=== PATIENT | female | born 1935 | race Caucasian/White ===

== ENCOUNTER → 2017-06-30 | Outpatient (CLI) | payer OTHER ==
[~2017-06-30] MED LIST: ADULT LOW DOSE81 MG PO; AMOXICILLIN 50500 MG PO; ASPIR 8181 MG PO; ASPIRIN325 PO; AUGMENTIN 875-1 EACH PO; BACTRIM DS TAB1 EACH PO; CRESTOR10 MG PO; DIFLUCAN200 MG PO; FLAGYL500 MG PO; FLONASE 0.05%50 MCG NASAL; HYDROCODON-ACE1 EAC7 PO; LEVAQUIN 500 M500 M2 PO; LEVOTHROID PO; LIPITOR10 MG PO; POTASSIUM20 PO; PROTONIX40 M1 PO; TRAMADOL 50 MG50 MG PO; TRAZODONE HCL50 MG PO; ZETIA10 MG PO; ZYRTEC10 M4 PO
== END ==
LOC: ULTRA 12:29
DX: R22.32 Localized swelling, mass and lump, left upper limb (principal)

== ENCOUNTER → 2017-07-01 | Outpatient (CLI) | payer OTHER | LOC: CAT 13:23 | DX: R22.2 Localized swelling, mass and lump, trunk (principal) ==

== ENCOUNTER → 2017-07-06 | Outpatient (CLI) | payer OTHER ==
--- NOTE | ~2017-07-06 | S ---
[facility] [place] [address] SURGICAL PATH RPT PROCEDURE Name: NADINE MOODY Room #: REG OPAL David.#: [id number] Admission: 07/06/17 Date of : 35 Discharge: Report #: [id number] Path Case #: [id number] PATHOLOGY REPORT COLLECTION DATE: 07/06/2017 RECEIVED DATE: 07/06/2017 SUBMITTING PHYS: Dr. Deshawn Whitlock OTHER PHYS: SPECIMEN(S) RECEIVED: A.Lt axillary lymph node * * * * * * * * * * * * FINAL DIAGNOSIS: Lymph node, left axillary, needle core biopsy: - Lymph node with few reactive follicles and fibrosis. Please see comment. COMMENT: Examination of the left axillary lymph node shows few reactive follicles and fibrosis. Definite Ramesh-Kareen cells, metastatic carcinoma or granulomas are not identified. Immunophenotypic studies by flow cytometry do not show evidence of non-Hodgkin lymphoma (please see separate flow cytometry report from [employer], [id number]). To confirm flow cytometric findings and characterize the lymphoid cells in a tissue architectural context, immunohistochemical stains are performed with appropriate controls: (Block A1) CD20 - Highlights B lymphoid cells CD3 - Highlights admixed T lymphoid cells CD10 - Highlights B lymphoid cells within germinal centers BCL6 - Highlights B lymphoid cells within germinal centers BCL2 - Highlights B and T lymphoid cells with lack of staining within germinal centers. CD138 - Highlights occasional plasma cells Sprague and lambda YOLA - Polytypic Based on the morphology, immunohistochemical staining pattern and flow cytometry, these findings are consistent with benign reactive lymph node. However, it should be noted that partially involved lymph node by malignancy or Hodgkin lymphoma in a background of reactive hyperplasia cannot be totally excluded due to sampling artifact. Excision of the lymph node is recommended if clinically suspicious. Co-review: Dr. Mariel Goodson. (JMQ:db; 07/08/2017) PATHOLOGIST: Irlanda Correia M.D. [address] [address] SURGICAL PATH RPT PROCEDURE Name: NADINE MOODY [facility] [id number] Admission: 07/06/17 Date of : 35 Discharge: Report #: [id number] Path Case #: [id number] REPORT ELECTRONICALLY SIGNED BY: Irlanda Correia M.D. DATE/TIME: 07/09/2017 13:09 * * * * * * * * * * * * GROSS PATHOLOGY: Received in formalin labeled "Nadine Moody, left axillary," and additionally labeled on the requisition as "lymph node," are 4 distinct needle cores of toledo soft tissue ranging from 0.2 to 1.6 cm in length, which are submitted entirely in cassette A1 through A3. (TSD; 07/06/2017) CLINICAL HISTORY: Left axillary lymph node INITIAL CPT CODE(S): A; 90604, 33634, 84285, 42112, 36436, 26988, 42996, 77818, 62812 Professional services performed by [facility] at [facility], [address] [place] [address]. Technical services performed by [email or web address] at [address] [place] [address], [address], [place] [address]. [facility] [address] [place] [address] PHONE: [phone] DIRECTOR: Richard Diego M.D. * * * END OF REPORT * * *
== END ==
LOC: ULTRA 10:37
DX: I89.8 Other specified noninfective disorders of lymphatic vessels and lymph nodes (principal); D64.9 Anemia, unspecified; Z88.8 Allergy status to other drugs, medicaments and biological substances; Z86.73 Personal history of transient ischemic attack (TIA), and cerebral infarction without residual deficits; Z87.440 Personal history of urinary (tract) infections

== ENCOUNTER 2017-08-17 14:33 | Inpatient (IN) | payer OTHER ==
[~2017-08-17] VITALS: Ht 160 cm; Wt 72.6 kg
--- NOTE | ~2017-08-17 | EKG ---
[place] [address] [facility] [address] [place] [address] ELECTROCARDIOGRAM REPORT Name: NADINE ARROYO Room #: 353-P ADM IN M.R.#: [id number] Admission: 08/17/17 Attend Phys: Deshawn Whitlock MD Discharge: Date of : 35 Report #: [id number] THIS REPORT FOR: //name// [facility] Test Date: 2017-08-18 Test Time: 01:45:34 Pat Name: NADINE ARROYO Department: Room: 353 Gender: F Instrument Setter: israel : 1935 Requested By: Deshawn Whitlock Order Number: [id number] MD: Arjun Novak Measurements Intervals [place] Rate: 103 P: 45 IA: 151 QRS: 14 QRSD: 76 T: 210 QT: 299 QTc: 392 Interpretive Statements Sinus tachycardia Repol abnrm suggests ischemia, diffuse leads Compared to ECG 08/17/2017 15:09:52 ST and T wave abnormality is more pronounced Electronically Signed On 08-18-2017 8:17:16 CDT by Arjun Novak [email or web address] <ELECTRONICALLY SIGNED> By: Arjun Novak MD, [facility] 08/18/17 0817 0145 0145 Arjun Novak MD, [facility] /EPI
--- NOTE | ~2017-08-17 | EKG ---
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: MARY : 1935 Requested By: Rosaura Honeycutt Order Number: [id number] MD: Arjun Novak Measurements Intervals [place] Rate: 87 P: 44 LA: 153 QRS: 21 QRSD: 81 T: 71 QT: 368 QTc: 443 Interpretive Statements Sinus rhythm Minimal ST depression, anterolateral leads Compared to ECG 01/30/2016 10:18:16 ST (T wave) deviation now present Electronically Signed On 08-17-2017 17:21:12 CDT by Arjun Novak [email or web address] <ELECTRONICALLY SIGNED> By: Arjun Novak MD, [facility] 08/17/17 1721 1509 1509 Arjun Novak MD, [facility] /EPI
--- NOTE | ~2017-08-17 | S ---
[facility] [address] [place] [address] SURGICAL PATH RPT PROCEDURE Name: NADINE ARROYO Room #: 353-P ADM IN M.R.#: [id number] Admission: 08/17/17 Date of : 35 Discharge: Report #: [id number] Path Case #: [id number] PATHOLOGY REPORT DRAFT COLLECTION DATE: 08/20/2017 RECEIVED DATE: 08/20/2017 SPECIMEN(S) RECEIVED: A.Bone marrow, biopsy B.Bone marrow, clot and/or particle prep C.Bone marrow, aspirate smears D.Peripheral smear
[2017-08-17 14:40] VITALS: BP 116/62
[2017-08-17 16:08] LABS: MCH 28.6 pg (26.0-34.0); MCHC 33.5 g/dL (28.0-37.0); MCV 85.6 fL (80.0-100.0); RBC 1.92 mil/uL (4.20-5.00); RDW 15.6 % (10.5-14.5)
[2017-08-17 16:14] LABS: HEMATOCRIT 16.5 % (37.0-47.0); HEMOGLOBIN 5.5 gm/dL (12.0-15.0); WBC 1.5 thou/uL (4.0-11.0)
[2017-08-17 16:16] LABS: ANION GAP 8 mmol/L (7-16); BUN 29 mg/dL (7-18); CALCIUM 8.6 mg/dL (8.5-10.1); CHLORIDE 110 mmol/L (98-107); CO2 27 mmol/L (21-32); CREATININE 1.1 mg/dL (0.6-1.0); GLUCOSE 102 mg/dL (74-106); POTASSIUM 3.8 mmol/L (3.5-5.1); SODIUM 145 mmol/L (136-145)
[2017-08-17 16:25] LABS: TROPONIN-I < 0.04 ng/mL (<0.06)
[2017-08-17 16:34] LABS: ABSOLUTE NEUTROPHILS 0.4 thou/uL (1.4-8.2); ANISOCYTOSIS 1+; LARGE PLATELETS FEW; PLATELET COUNT 10 thou/uL (150-400); PLATELET ESTIMATE MARKEDLY DECREASED
[2017-08-17 17:18] VITALS: BP 137/72
[2017-08-17 17:38] VITALS: BP 122/59
[2017-08-17 19:30] VITALS: BP 114/55
[2017-08-17 23:28] VITALS: BP 112/58; BP 118/81
[2017-08-17 23:50] VITALS: BP 112/58
[2017-08-18] VITALS (8 sets, daily range): BP systolic 108–132; BP diastolic 51–73
[2017-08-18 10:32] LABS: HEMATOCRIT 20.8 % (37.0-47.0); HEMOGLOBIN 7.1 gm/dL (12.0-15.0)
[2017-08-18 16:08] LABS: HEMOGLOBIN 6.9 gm/dL (12.0-15.0)
[2017-08-19 00:15] VITALS: BP 111/60; BP 115/73; BP 136/77
[2017-08-19 03:10] VITALS: BP 136/77
[2017-08-19 05:45] LABS: HEMATOCRIT 21.7 % (37.0-47.0); HEMOGLOBIN 7.3 gm/dL (12.0-15.0); RBC 2.65 mil/uL (4.20-5.00)
[2017-08-19 05:50] LABS: MCH 27.5 pg (26.0-34.0); MCHC 33.5 g/dL (28.0-37.0); MCV 81.9 fL (80.0-100.0)
[2017-08-19 05:55] LABS: WBC 1.7 thou/uL (4.0-11.0)
[2017-08-19 07:55] VITALS: BP 140/58
[2017-08-19 11:26] VITALS: BP 130/66
[2017-08-19 16:14] VITALS: BP 118/81
[2017-08-19 19:40] VITALS: BP 118/61
[2017-08-20] VITALS (9 sets, daily range): BP systolic 104–123; BP diastolic 48–64
[2017-08-20 07:05] LABS: PROTIME 10.5 Seconds (9.3-11.4)
[2017-08-21] VITALS (8 sets, daily range): BP systolic 96–134; BP diastolic 44–82
[2017-08-21 07:22] LABS: RDW 15.9 % (10.5-14.5)
[2017-08-21 07:25] LABS: MCH 27.5 pg (26.0-34.0); MCV 80.8 fL (80.0-100.0); RBC 2.04 mil/uL (4.20-5.00)
[2017-08-21 07:30] LABS: HEMOGLOBIN 5.6 gm/dL (12.0-15.0); WBC 1.4 thou/uL (4.0-11.0)
[2017-08-21 07:31] LABS: HEMATOCRIT 16.5 % (37.0-47.0)
[2017-08-21 22:23] LABS: HEMATOCRIT 23.9 % (37.0-47.0)
[2017-08-21 22:25] LABS: HEMOGLOBIN 8.1 gm/dL (12.0-15.0)
[2017-08-22 04:31] VITALS: BP 104/53
[2017-08-22 08:00] VITALS: BP 101/71
[2017-08-22 12:08] LABS: HEMATOCRIT 22.4 % (37.0-47.0); HEMOGLOBIN 7.7 gm/dL (12.0-15.0); MCH 28.7 pg (26.0-34.0); MCHC 34.5 g/dL (28.0-37.0); MCV 83.2 fL (80.0-100.0); RBC 2.69 mil/uL (4.20-5.00)
[2017-08-22 12:11] VITALS: BP 105/32; BP 86/57
[2017-08-22 15:53] LABS: HEMATOCRIT 22.7 % (37.0-47.0)
[2017-08-22 15:54] LABS: HEMOGLOBIN 7.5 gm/dL (12.0-15.0); MCH 28.5 pg (26.0-34.0); MCHC 33.3 g/dL (28.0-37.0); MCV 85.7 fL (80.0-100.0); RBC 2.65 mil/uL (4.20-5.00)
[2017-08-22 15:59] LABS: WBC 1.4 thou/uL (4.0-11.0)
[2017-08-22 16:43] VITALS: BP 123/52
[2017-08-22 20:00] VITALS: BP 95/51
[2017-08-23 04:00] VITALS: BP 110/51
[2017-08-23 08:08] VITALS: BP 87/65
[2017-08-23 10:51] LABS: MCV 83.3 fL (80.0-100.0); WBC 2.1 thou/uL (4.0-11.0)
[2017-08-23 10:53] LABS: MCH 28.8 pg (26.0-34.0); MCHC 34.5 g/dL (28.0-37.0); RBC 2.21 mil/uL (4.20-5.00); RDW 16.3 % (10.5-14.5)
[2017-08-23 11:00] LABS: HEMATOCRIT 18.4 % (37.0-47.0); HEMOGLOBIN 6.4 gm/dL (12.0-15.0); PLATELET COUNT 10 thou/uL (150-400)
[2017-08-23 11:26] LABS: ABSOLUTE NEUTROPHILS 1.7 thou/uL (1.4-8.2)
[2017-08-23 11:27] LABS: ANISOCYTOSIS 1+; HYPOCHROMASIA 2+; OVALOCYTES OCCASIONAL; TARGET CELLS OCCASIONAL
[2017-08-23 11:40] VITALS: BP 118/60
[2017-08-23 14:57] VITALS: BP 107/54; BP 116/58
[2017-08-23 16:26] VITALS: BP 112/49
[2017-08-23 20:40] VITALS: BP 113/55
[2017-08-24 03:10] VITALS: BP 132/68
[2017-08-24 05:15] LABS: ABSOLUTE NEUTROPHILS 6.4 thou/uL (1.4-8.2); HEMOGLOBIN 7.5 gm/dL (12.0-15.0)
[2017-08-24 05:18] LABS: BASOPHILS 0.2 % (0.0-2.0); EOSINOPHILS 0.5 % (0.0-3.0); HEMATOCRIT 22.3 % (37.0-47.0); LYMPHOCYTES 6.1 % (24.0-44.0); MCH 27.9 pg (26.0-34.0); MCHC 33.8 g/dL (28.0-37.0); MCV 82.5 fL (80.0-100.0); MONOCYTES 8.4 % (1.0-8.0); POLYS 84.8 % (36.0-66.0); RDW 16.5 % (10.5-14.5)
[2017-08-24 05:32] LABS: WBC 7.5 thou/uL (4.0-11.0)
[2017-08-24 08:04] VITALS: BP 128/66
[2017-08-24 08:26] LABS: ANISOCYTOSIS 2+; MICROCYTES 2+; PLATELET COUNT 25 thou/uL (150-400); PLATELET ESTIMATE MARKEDLY DECREASED
[2017-08-24 12:20] VITALS: BP 136/88
[2017-08-24 17:17] VITALS: BP 135/75
[2017-08-24 19:30] VITALS: BP 117/67
[2017-08-25 04:05] VITALS: BP 136/56
[2017-08-25 06:18] LABS: ABSOLUTE NEUTROPHILS 7.3 thou/uL (1.4-8.2); BASOPHILS 0.1 % (0.0-2.0); HEMATOCRIT 20.9 % (37.0-47.0); HEMOGLOBIN 7.2 gm/dL (12.0-15.0); LYMPHOCYTES 7.4 % (24.0-44.0); MCHC 34.2 g/dL (28.0-37.0); MCV 81.7 fL (80.0-100.0); MONOCYTES 7.1 % (1.0-8.0); PLATELET COUNT 20 thou/uL (150-400); POLYS 85.4 % (36.0-66.0); RBC 2.56 mil/uL (4.20-5.00); RDW 16.6 % (10.5-14.5); WBC 8.6 thou/uL (4.0-11.0)
[2017-08-25 07:23] VITALS: BP 141/69
[2017-08-25 12:55] VITALS: BP 125/59
[2017-08-25 20:05] VITALS: BP 123/67
[2017-08-25 22:28] VITALS: BP 123/76; BP 150/85
[2017-08-26 04:10] VITALS: BP 148/64
[2017-08-26 05:53] LABS: ABSOLUTE NEUTROPHILS 7.4 thou/uL (1.4-8.2); BASOPHILS 0.2 % (0.0-2.0); LYMPHOCYTES 10.3 % (24.0-44.0); MCH 27.4 pg (26.0-34.0); MCHC 33.2 g/dL (28.0-37.0); MCV 82.3 fL (80.0-100.0); MONOCYTES 5.9 % (1.0-8.0); POLYS 83.6 % (36.0-66.0); RBC 2.92 mil/uL (4.20-5.00); RDW 16.2 % (10.5-14.5); WBC 8.8 thou/uL (4.0-11.0)
[2017-08-26 05:58] LABS: PLATELET COUNT 87 thou/uL (150-400)
[2017-08-26 08:09] VITALS: BP 146/62
[2017-08-26 11:04] VITALS: BP 132/60
[2017-08-26 14:26] VITALS: BP 131/66
[2017-08-26 20:00] VITALS: BP 110/61
[2017-08-27 04:10] VITALS: BP 128/57
[2017-08-27 05:19] LABS: HEMATOCRIT 21.8 % (37.0-47.0); HEMOGLOBIN 7.2 gm/dL (12.0-15.0); MCH 27.3 pg (26.0-34.0); MCHC 33.2 g/dL (28.0-37.0); MCV 82.2 fL (80.0-100.0); RBC 2.65 mil/uL (4.20-5.00); RDW 16.7 % (10.5-14.5); WBC 6.2 thou/uL (4.0-11.0)
[2017-08-27 05:50] LABS: ABSOLUTE NEUTROPHILS 4.3 thou/uL (1.4-8.2); ANISOCYTOSIS 1+; PLATELET COUNT 58 thou/uL (150-400)
[2017-08-27 07:45] VITALS: BP 112/63
[2017-08-27 08:48] VITALS: BP 112/63
== END 2017-08-27 12:20 | disposition home or self-care (01) | DRG 377 ==
LOC: ER 14:33 → 3W 16:20 → EROBS 16:20 → 3W 18:07 → ENTRNSPT 08-27 12:02 → EDTRNSPTSTS 08-27 12:06 → 3W 08-27 12:20
PROVIDERS: Emergency Medicine; Family Medicine; Internal Medicine Gastroenterology; Internal Medicine Hematology & Oncology; Radiology Diagnostic Radiology; Specialist
PROC: 07DR3ZX Extraction of Iliac Bone Marrow, Percutaneous Approach, Diagnostic (ICD-10-PCS; principal; 2017-08-20)
PROC: 30233N1 Transfusion of Nonautologous Red Blood Cells into Peripheral Vein, Percutaneous Approach (ICD-10-PCS; principal; 2017-08-20)
PROC: 30233R1 Transfusion of Nonautologous Platelets into Peripheral Vein, Percutaneous Approach (ICD-10-PCS; principal; 2017-08-20)
PROC: 0W3P8ZZ Control Bleeding in Gastrointestinal Tract, Via Natural or Artificial Opening Endoscopic (ICD-10-PCS; 2017-08-26)
PROC: 0D5K8ZZ Destruction of Ascending Colon, Via Natural or Artificial Opening Endoscopic (ICD-10-PCS; 2017-08-26)
DX: K92.2 Gastrointestinal hemorrhage, unspecified (principal); E43 Unspecified severe protein-calorie malnutrition; D61.818 Other pancytopenia; N39.0 Urinary tract infection, site not specified; I69.954 Hemiplegia and hemiparesis following unspecified cerebrovascular disease affecting left non-dominant side; Q27.33 Arteriovenous malformation of digestive system vessel; E89.0 Postprocedural hypothyroidism; D46.9 Myelodysplastic syndrome, unspecified; D69.6 Thrombocytopenia, unspecified; I20.9 Angina pectoris, unspecified; Z79.899 Other long term (current) drug therapy; Z88.8 Allergy status to other drugs, medicaments and biological substances; Z88.1 Allergy status to other antibiotic agents; Z68.28 Body mass index [BMI] 28.0-28.9, adult
CPT/HCPCS: 10879; 62110; 62900; 70005

== ENCOUNTER → 2017-09-08 | Outpatient (CLI) | payer OTHER ==
[2017-09-08 10:00] LABS: MCV 83.5 fL (80.0-100.0); RDW 17.3 % (10.5-14.5)
[2017-09-08 10:01] LABS: HEMATOCRIT 20.1 % (37.0-47.0); HEMOGLOBIN 6.6 gm/dL (12.0-15.0); MCH 27.5 pg (26.0-34.0); RBC 2.41 mil/uL (4.20-5.00)
[2017-09-08 10:29] LABS: METAMYELOCYTES 1 %
[2017-09-08 10:30] LABS: ANISOCYTOSIS 1+; HYPOCHROMASIA 1+; MICROCYTES 2+; OVALOCYTES FEW; POIKILOCYTOSIS 2+; POLYCHROMASIA 1+
[2017-09-08 10:38] VITALS: BP 137/61
[2017-09-08 10:42] LABS: PLATELET COUNT 46 thou/uL (150-400)
[2017-09-08 11:43] VITALS: BP 135/63; BP 136/56
[2017-09-08 14:06] VITALS: BP 137/61
== END ==
LOC: OPONC 07:29
PROVIDERS: Family Medicine
DX: D46.9 Myelodysplastic syndrome, unspecified (principal)
CPT/HCPCS: 91030

== ENCOUNTER 2017-10-19 11:02 | Inpatient (IN) | payer OTHER ==
[~2017-10-19] VITALS: Ht 157.5 cm; Wt 77.8 kg
--- NOTE | ~2017-10-19 | EKG ---
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 : 1935 Requested By: Dharmesh Rodrigues Order Number: [id number] MD: Arjun Novak Measurements Intervals [place] Rate: 82 P: 58 MD: 164 QRS: 28 QRSD: 74 T: 31 QT: 375 QTc: 438 Interpretive Statements Sinus rhythm No significant abnormality Compared to ECG 08/18/2017 01:45:34 Sinus tachycardia no longer present ST segment abnormality is no longer present Electronically Signed On 10-20-2017 14:09:41 CDT by Arjun Novak [email or web address] <ELECTRONICALLY SIGNED> By: Arjun Novak MD, [facility] 10/20/17 1409 1220 1220 Arjun Novak MD, [facility] /EPI
--- NOTE | ~2017-10-19 | PATH ---
[facility] [place] [address] [place] [address] PATHOLOGY RPT PROCEDURE Name: CHAVO ARROYOR Room #: 217-P DIS IN M.R.#: [id number] Admission: 10/19/17 Date of : 35 Discharge: 10/22/17 Report #: [id number] Path Case #: [id number] [facility] Accession Number: [id number] . 01 Material submitted: . POLYP-PROXIMAL ASCENDING COLON BX . 01 Clinical history: . Pre-op DX: GI bleed, recurrent Post-op DX: Multiple AVMs, colon polyp, diverticulosis . 02 Diagnosis: Polyp, proximal ascending colon, endoscopic biopsy: - Compatible with a hyperplastic polyp. - Focal lymphoid aggregate. - Negative for dysplasia. (IUV:db; 10/23/2017) LBQ/10/23/2017 . 02 Electronically signed: . Mary Toure MD, Pathologist NPI- [id number] . 01 Gross description: . Received in formalin labeled "Debruyn, Nadine, ascending colon polyp BX," and additionally labeled on the requisition as, "proximal ascending colon," is a segment of toledo soft tissue measuring 0.4 cm in maximum dimension. The specimen is submitted entirely in cassette A1. (DAC; 10/22/2017) XDC/XDC . 02 Pathologist provided ICD-10: K63.5 . 02 CPT . 104705 Performed at: [address], [place] [id number] MD James Rae MD Phone: [phone] Performed at: [address] [id number] MD Mary Toure MD Phone: [phone]
[2017-10-19 11:11] VITALS: BP 120/55
[2017-10-19 11:48] LABS: MCV 82.5 fL (80.0-100.0)
[2017-10-19 11:50] LABS: MCH 26.7 pg (26.0-34.0); MCHC 32.4 g/dL (28.0-37.0); RBC 2.29 mil/uL (4.20-5.00); RDW 20.9 % (10.5-14.5)
[2017-10-19 11:54] LABS: CALCIUM 8.3 mg/dL (8.5-10.1); POTASSIUM 3.8 mmol/L (3.5-5.1)
[2017-10-19 11:56] LABS: WBC 1.6 thou/uL (4.0-11.0)
[2017-10-19 11:57] LABS: HEMATOCRIT 18.9 % (37.0-47.0); HEMOGLOBIN 6.1 gm/dL (12.0-15.0)
[2017-10-19 12:01] LABS: ALBUMIN 3.5 g/dL (3.4-5.0); TOTAL BILIRUBIN 0.3 mg/dL (<0.1-1.0); TOTAL PROTEIN 7.1 g/dL (6.4-8.2)
[2017-10-19 12:24] LABS: ABSOLUTE NEUTROPHILS 0.2 thou/uL (1.4-8.2)
[2017-10-19 12:25] LABS: ANISOCYTOSIS 1+; LARGE PLATELETS FEW; OVALOCYTES 1+; PLATELET COUNT 59 thou/uL (150-400); PLATELET ESTIMATE DECREASED; POLYCHROMASIA 1+
[2017-10-19 12:26] LABS: HYPOCHROMASIA 2+
[2017-10-19 14:00] VITALS: BP 113/38; BP 115/62; BP 117/48; BP 118/50; BP 119/58
[2017-10-19 14:17] LABS: URINE BILIRUBIN NEGATIVE (Negative); URINE BLOOD NEGATIVE (Negative); URINE CLARITY CLEAR; URINE COLOR YELLOW; URINE GLUCOSE-RANDOM* NEGATIVE (Negative); URINE KETONES NEGATIVE (Negative); URINE LEUKOCYTES-REFLEX NEGATIVE (Negative); URINE NITRITE-REFLEX NEGATIVE (Negative); URINE PROTEIN (DIPSTICK) NEGATIVE (Negative); URINE SPECIFIC GRAVITY 1.015 (1.005-1.035); URINE UROBILINOGEN 0.2 E.U./dl (0.2-1.0)
[2017-10-19 17:41] VITALS: BP 120/55
[2017-10-19 17:45] VITALS: BP 138/67
[2017-10-19 18:00] LABS: HEMOGLOBIN 7.1 gm/dL (12.0-15.0)
[2017-10-19 18:02] LABS: HEMATOCRIT 21.4 % (37.0-47.0)
[2017-10-19 18:50] VITALS: BP 138/67
[2017-10-19 19:00] VITALS: BP 140/71
[2017-10-20 00:50] VITALS: BP 110/57
[2017-10-20 05:14] VITALS: BP 107/58
[2017-10-20 07:36] VITALS: BP 127/64
[2017-10-20 11:35] LABS: HEMATOCRIT 23.5 % (37.0-47.0)
[2017-10-20 11:36] LABS: HEMOGLOBIN 7.8 gm/dL (12.0-15.0)
[2017-10-20 12:27] VITALS: BP 125/74
[2017-10-20 15:25] VITALS: BP 123/59
[2017-10-20 17:07] LABS: HEMOGLOBIN 7.9 gm/dL (12.0-15.0)
[2017-10-20 17:08] LABS: HEMATOCRIT 23.7 % (37.0-47.0)
[2017-10-20 20:15] VITALS: BP 126/99
[2017-10-21 00:39] VITALS: BP 150/75
[2017-10-21 04:17] VITALS: BP 123/78
[2017-10-21 07:34] VITALS: BP 126/58
[2017-10-21 15:05] VITALS: BP 124/56
[2017-10-21 20:25] VITALS: BP 118/65
[2017-10-22 04:00] LABS: HEMOGLOBIN 7.6 gm/dL (12.0-15.0)
[2017-10-22 04:02] LABS: HEMATOCRIT 22.7 % (37.0-47.0)
[2017-10-22 05:02] VITALS: BP 121/57
[2017-10-22 07:47] VITALS: BP 116/54
[2017-10-22 10:58] VITALS: BP 116/54
[2017-10-22 11:33] VITALS: BP 113/63
[2017-10-22 12:01] VITALS: BP 116/54
== END 2017-10-22 12:15 | disposition home or self-care (01) | DRG 377 ==
LOC: ER 11:02 → 2N 12:30 → EROBS 12:30 → 2N 19:14
PROVIDERS: Anesthesiology; Internal Medicine Gastroenterology; Nurse Practitioner; Physician Assistant
PROC: 0DJ08ZZ Inspection of Upper Intestinal Tract, Via Natural or Artificial Opening Endoscopic (ICD-10-PCS; principal; 2017-10-20)
PROC: 30233N1 Transfusion of Nonautologous Red Blood Cells into Peripheral Vein, Percutaneous Approach (ICD-10-PCS; principal; 2017-10-20)
PROC: 0DBK8ZX Excision of Ascending Colon, Via Natural or Artificial Opening Endoscopic, Diagnostic (ICD-10-PCS; 2017-10-21)
PROC: 0D5H8ZZ Destruction of Cecum, Via Natural or Artificial Opening Endoscopic (ICD-10-PCS; 2017-10-21)
DX: K55.21 Angiodysplasia of colon with hemorrhage (principal); E43 Unspecified severe protein-calorie malnutrition; D62 Acute posthemorrhagic anemia; K57.31 Diverticulosis of large intestine without perforation or abscess with bleeding; E89.0 Postprocedural hypothyroidism; D46.9 Myelodysplastic syndrome, unspecified; K44.9 Diaphragmatic hernia without obstruction or gangrene; K22.2 Esophageal obstruction; K63.5 Polyp of colon; Z88.1 Allergy status to other antibiotic agents; Z88.8 Allergy status to other drugs, medicaments and biological substances; Z79.899 Other long term (current) drug therapy; Z68.31 Body mass index [BMI] 31.0-31.9, adult
CPT/HCPCS: 10081; 62110; 62900; 70005

== ENCOUNTER 2018-04-10 09:21 | Emergency (ER) | payer OTHER ==
[~2018-04-10] VITALS: Ht 152.4 cm; Wt 74.8 kg
--- NOTE | ~2018-04-10 | EKG ---
[address] [address] ELECTROCARDIOGRAM REPORT Name: NADINE ARROYO [id number] Admission: 04/10/18 Attend Phys: Discharge: 04/10/18 Date of : 35 Report #: [id number] THIS REPORT FOR: //name// [facility] ED Test Date: 2018-04-10 Test Time: 10:29:56 Pat Name: NADINE ARROYO Department: Room: Gender: F Rn Flight: [facility] : 1935 Requested By: Fred Philip Order Number: [id number] MD: Brando Gipson Measurements Intervals [place] Rate: 70 P: 36 [place]: 132 QRS: 14 QRSD: 90 T: 26 QT: 366 QTc: 395 Interpretive Statements Sinus rhythm Atrial premature complex Compared to ECG 10/19/2017 12:20:09 Atrial premature complex(es) now present Electronically Signed On 04-11-2018 20:33:39 BAR GAUGER AND LUBRICATOR TENDER by Brando Gipson [email or web address] <ELECTRONICALLY SIGNED> By: Brando Gipson MD 04/11/182032 1029 1029 Brando Gipson MD /SHOBHA
[2018-04-10 10:32] LABS: HEMATOCRIT 28.2 % (37.0-47.0); HEMOGLOBIN 9.6 gm/dL (12.0-15.0); MCH 28.8 pg (26.0-34.0); MCHC 34.2 g/dL (28.0-37.0); MCV 84.1 fL (80.0-100.0); RBC 3.35 mil/uL (4.20-5.00); RDW 15.8 % (10.5-14.5); WBC 6.1 thou/uL (4.0-11.0)
[2018-04-10 10:47] LABS: ANION GAP 13 mmol/L (7-16); BUN 16 mg/dL (7-18); CALCIUM 8.7 mg/dL (8.5-10.1); CHLORIDE 100 mmol/L (98-107); CO2 22 mmol/L (21-32); GLUCOSE 117 mg/dL (74-106); POTASSIUM 3.1 mmol/L (3.5-5.1); SODIUM 135 mmol/L (136-145)
[2018-04-10 10:55] LABS: ALBUMIN 3.4 g/dL (3.4-5.0); MAGNESIUM 2.2 mg/dL (1.8-2.4); SGOT 32 U/L (15-37); SGPT 22 U/L (30-65); TOTAL BILIRUBIN 0.7 mg/dL (<0.1-1.0); TOTAL PROTEIN 7.4 g/dL (6.4-8.2); TROPONIN-I <0.06 ng/mL (<0.06)
[2018-04-10 11:07] LABS: URINE BILIRUBIN NEGATIVE (Negative); URINE BLOOD 1+ (Negative); URINE CLARITY CLEAR; URINE COLOR YELLOW; URINE GLUCOSE-RANDOM* NEGATIVE (Negative); URINE KETONES TRACE (Negative); URINE LEUKOCYTES-REFLEX NEGATIVE (Negative); URINE NITRITE-REFLEX NEGATIVE (Negative); URINE PROTEIN (DIPSTICK) 1+ (Negative)
[2018-04-10 11:24] LABS: CASTS None Seen /LPF (None Seen); MUCUS >6 Heavy strn/LPF (None Seen); SQUAMOUS 0-3 Few /LPF (0-3)
[2018-04-10 11:26] LABS: BACTERIA-REFLEX 1-9 Few /HPF (None Seen); CRYSTALS None Seen /LPF (None Seen); URINE RBC 0-2 Rare /HPF (0-2); URINE WBC-REFLEX 0-5 Rare /HPF (0-5)
[2018-04-10 11:55] LABS: ABSOLUTE NEUTROPHILS 3.9 thou/uL (1.4-8.2)
[2018-04-10 11:56] LABS: LARGE PLATELETS FEW; PLATELET COUNT 59 thou/uL (150-400)
[2018-04-10] MEDS ORDERED: FLOMAX0.4 MG PO (12:02)
[2018-04-10 13:22] VITALS: BP 123/75
== END 2018-04-10 13:23 | disposition home or self-care (01) ==
LOC: ER 09:21
PROVIDERS: Emergency Medicine
DX: D64.9 Anemia, unspecified (principal); E87.6 Hypokalemia; E03.9 Hypothyroidism, unspecified; D69.6 Thrombocytopenia, unspecified; R33.9 Retention of urine, unspecified; Z86.2 Personal history of diseases of the blood and blood-forming organs and certain disorders involving the immune mechanism; Z88.1 Allergy status to other antibiotic agents; Z88.8 Allergy status to other drugs, medicaments and biological substances

== ENCOUNTER 2018-05-05 15:15 | Inpatient (IN) | payer OTHER ==
[~2018-05-05] VITALS: Ht 160 cm; Wt 70.6 kg
[~2018-05-05 15:15] MED LIST changes: +FLOMAX0.4 MG PO
[2018-05-05 17:36] VITALS: BP 121/46
[2018-05-05 19:15] LABS: HEMATOCRIT 26.4 % (37.0-47.0); HEMOGLOBIN 8.9 gm/dL (12.0-15.0); MCH 27.4 pg (26.0-34.0); MCHC 33.7 g/dL (28.0-37.0); MCV 81.1 fL (80.0-100.0); RBC 3.26 mil/uL (4.20-5.00); RDW 17.6 % (10.5-14.5); WBC 5.6 thou/uL (4.0-11.0)
[2018-05-05 19:18] VITALS: BP 124/55
[2018-05-06 04:14] VITALS: BP 118/52
[2018-05-06 07:43] VITALS: BP 122/71
[2018-05-06 15:43] VITALS: BP 129/57
[2018-05-06 19:12] VITALS: BP 118/63
[2018-05-07 04:02] VITALS: BP 109/55
[2018-05-07 06:00] LABS: CALCIUM 8.1 mg/dL (8.5-10.1); CREATININE 0.8 mg/dL (0.6-1.0); MAGNESIUM 2.1 mg/dL (1.8-2.4)
[2018-05-07 06:02] LABS: POTASSIUM 2.7 mmol/L (3.5-5.1)
[2018-05-07 08:38] VITALS: BP 136/65
[2018-05-07 12:30] VITALS: BP 111/66
[2018-05-07 16:30] LABS: CALCIUM 8.3 mg/dL (8.5-10.1); POTASSIUM 3.6 mmol/L (3.5-5.1)
[2018-05-08 07:07] LABS: CALCIUM 8.2 mg/dL (8.5-10.1); CREATININE 0.9 mg/dL (0.6-1.0); POTASSIUM 3.5 mmol/L (3.5-5.1)
[2018-05-08 08:00] VITALS: BP 108/55
[2018-05-08 19:49] VITALS: BP 114/59
[2018-05-09 07:53] VITALS: BP 106/60
[2018-05-09 20:54] VITALS: BP 131/70
[2018-05-10 08:40] VITALS: BP 116/52
== END 2018-05-10 17:28 | DRG 389 ==
LOC: 4W 15:15 → 4N 17:00 → 4W 17:01 → SICU 05-07 12:02
PROVIDERS: Hospitalist; Internal Medicine Gastroenterology; ADMIT Family Medicine
DX: K56.7 Ileus, unspecified (principal); I69.354 Hemiplegia and hemiparesis following cerebral infarction affecting left non-dominant side; K59.00 Constipation, unspecified; D46.9 Myelodysplastic syndrome, unspecified; E89.0 Postprocedural hypothyroidism; R53.81 Other malaise; D69.59 Other secondary thrombocytopenia; E87.6 Hypokalemia; Z88.1 Allergy status to other antibiotic agents; Z88.8 Allergy status to other drugs, medicaments and biological substances
CPT/HCPCS: 10047; 15000; 15002

== ENCOUNTER 2018-08-18 11:41 | Inpatient (IN) | payer OTHER, MEDICAID ==
[~2018-08-18] VITALS: Ht 154.9 cm; Wt 68.0 kg
[2018-08-18] VITALS (8 sets, daily range): BP systolic 98–149; BP diastolic 39–94
--- NOTE | ~2018-08-18 | P ---
[facility] [place] [address] [place] [address] PROCEDURE REPORT Name: NADINE ARROYO Room #: 350-P ADM IN M.R.#: [id number] Admission: 08/18/18 ������������������ Attend Phys: Deshawn Whitlock MD Discharge: ������������������ Date of : 35 Report #: [id number] THIS REPORT FOR: //name// CC: Deshawn Whitlock MD DATE OF SERVICE: 08/19/2018 PROCEDURE: EGD with biopsies and BICAP ablation of nonbleeding arteriovenous malformation. She is a patient of Dr. Deshawn Whitlock. INDICATION FOR PROCEDURE: This patient had presented with melena and elevated BUN and hematochezia of undetermined etiology. 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 She also has a severe iron deficiency anemia. Informed consent for this procedure was obtained prior to the administration of any medication. The risks of the procedure, which include bleeding, perforation, infection, complications of sedation and the possibility I could miss something have been explained to the patient and she has indicated her consent by signing. Anesthesia kindly provided deep sedation for this procedure and the colonoscopy that followed it. The Olympus upper videoscope was introduced through the upper esophageal sphincter and advanced under direct visualization to the third portion of the duodenum. Findings are noted on withdrawal of the scope. The duodenal mucosa appeared normal throughout its entirety. Biopsies were obtained x 2 to evaluate for possible celiac disease as an etiology of iron deficiency anemia. Pylorus: Normal mucosa. Antrum: Normal mucosa. Body: In the body of the stomach on the lesser curvature, there is a nonbleeding 1 cm arteriovenous malformation. It is ablated with the BICAP cautery system and found to be stable. The remaining mucosa of the body of the stomach appears normal. Cardia and fundus: Normal mucosa. Retroflex view reveals a small hiatal hernia. The scope was withdrawn into the esophagus. The Z-line is located at the top of the gastric folds and there is a Schatzki ring that is asymptomatic right at the Z-line. The esophageal mucosa appears normal throughout its entirety. The scope was withdrawn. The patient went to the recovery room in stable condition. She tolerated the procedure well. IMPRESSION: 1. Distal esophageal Schatzki ring, asymptomatic. 2. Small hiatal hernia. [facility] [address] [place] [address] PROCEDURE REPORT Name: NADINE ARROYO Room #: [facility] IN M.R.#: [id number] Admission: 08/18/18 ������������������ Attend Phys: Deshawn Whitlock MD Discharge: ������������������ Date of : 35 Report #: [id number] 3. Nonbleeding AVM of the mid stomach ablated with BICAP. 4. Normal appearing duodenum with biopsies taken for celiac sprue to rule this out as an etiology of iron deficiency anemia. RECOMMENDATIONS: To await the biopsy results and we will proceed with colonoscopy as the next test at this time. Thank you very much once again for allowing me to participate in her care, Dr. Whitlock. ��������������������������������������������� ���������������������������������������� By: ��������������������������������������������� 1421 0436 Dona De La Cruz, DO /nt
--- NOTE | ~2018-08-18 | P ---
[facility] [place] [address] [place] [address] PROCEDURE REPORT Name: NADINE ARROYO Room #: 350-P ADM IN M.R.#: [id number] Admission: 08/18/18 ������������������ Attend Phys: Deshawn Whitlock MD Discharge: ������������������ Date of : 35 Report #: [id number] THIS REPORT FOR: //name// CC: DESHAWN Whitlock DATE OF SERVICE: 08/19/2018 PATIENT OF: Dr. Deshawn Whitlock. PROCEDURE: Incomplete colonoscopy with snare polypectomy. INDICATION FOR PROCEDURE: This patient has had melena, hematochezia. She has a history of bleeding arteriovenous malformations of the cecum. She has severe iron deficiency anemia. Informed consent for this procedure was obtained prior to the administration of any medication. The risks of the procedure, which include bleeding, perforation, infection, complications of sedation and the possibility I could miss something have been explained to the patient and she has indicated her consent by signing. Propofol was slowly titrated before and during this procedure for patient comfort by the Anesthesia Service. DESCRIPTION OF PROCEDURE: With the patient in the left lateral decubitus position, digital rectal exam was performed and no abnormalities were palpated. Then, the Olympus colonoscope was introduced through the anal sphincter and advanced under direct visualization to 20 cm where I encountered this diverticular stricture, what appeared to be a benign diverticular stricture and despite multiple efforts, I could not pass the scope through this area because the angulation was too sharp and the caliber of the lumen was narrow. So that scope was withdrawn and then the upper videoscope was introduced through the anal sphincter and advanced under direct visualization to 20 cm and was gradually advanced through a very tortuous tight sigmoid colon and eventually we did come out on the other side, we were able to advance the scope all the way over to the mid ascending colon. I could not get the scope into the cecum, though because it was too short being an upper videoscope. Findings were noted on withdrawal of the scope. The visualized portion of the ascending colon appeared normal. It should also be noted there was no red blood in the upper GI tract or the colon. Hepatic flexure, normal mucosa; transverse colon, normal mucosa; splenic flexure, normal mucosa; descending colon, normal mucosa. In the sigmoid colon, there were multiple diverticula. There appeared to be a sigmoid stricture that was benign. There was no evidence of any mass that I could see in this area at all. The scope was then withdrawn into the rectum, there was a 5 mm sessile hemorrhagic polyp that I removed in toto with a hot snare and sent [address] [address] PROCEDURE REPORT Name: NADINE ARROYO Room #: 350-P [facility] IN M.R.#: [id number] Admission: 08/18/18 ������������������ Attend Phys: Deshawn Whitlock MD Discharge: ������������������ Date of : 35 Report #: [id number] to pathology lab. Good hemostasis was noted after that polypectomy. Retroflex view in the rectum did not reveal any other abnormalities. The scope was withdrawn. The patient went to the recovery area in stable condition. She tolerated the procedure well. IMPRESSION: 1. 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 2. We were able to reach the mid ascending colon. 3. Hemorrhagic rectal polyp removed as above with a hot snare. RECOMMENDATIONS: My recommendations at this point were for her to proceed as an outpatient with an M2 capsule study. Thank you very much once again for allowing me to participate in her care, Dr. Whitlock. ��������������������������������������������� ���������������������������������������� By: ��������������������������������������������� 1430 0557 Dona De La Cruz, /nt
[2018-08-18 12:41] LABS: HEMATOCRIT 20.1 % (37.0-47.0); HEMOGLOBIN 6.7 gm/dL (12.0-15.0); MCH 28.9 pg (26.0-34.0); MCHC 33.2 g/dL (28.0-37.0); WBC 2.7 thou/uL (4.0-11.0)
[2018-08-18 12:42] LABS: MCV 87.3 fL (80.0-100.0)
[2018-08-18 12:45] LABS: CALCIUM 8.8 mg/dL (8.5-10.1); CREATININE 1.1 mg/dL (0.6-1.0)
[2018-08-18 12:51] LABS: ALBUMIN 3.5 g/dL (3.4-5.0); TOTAL BILIRUBIN 0.3 mg/dL (<0.1-1.0); TOTAL PROTEIN 7.1 g/dL (6.4-8.2)
[2018-08-18 13:29] LABS: URINE BILIRUBIN NEGATIVE (Negative); URINE BLOOD 2+ (Negative); URINE CLARITY CLEAR; URINE COLOR YELLOW; URINE GLUCOSE-RANDOM* NEGATIVE (Negative); URINE KETONES NEGATIVE (Negative); URINE LEUKOCYTES 1+ (Negative); URINE NITRITE POSITIVE (Negative); URINE PROTEIN (DIPSTICK) NEGATIVE (Negative); URINE SPECIFIC GRAVITY 1.015 (1.005-1.035); URINE UROBILINOGEN 0.2 E.U./dl (0.2-1.0)
[2018-08-18 13:36] LABS: APTT 25.3 Seconds (24.5-32.8); PROTIME 10.4 Seconds (9.3-11.4)
[2018-08-18 13:38] LABS: BACTERIA 1-9 Few /HPF (None Seen); CASTS None Seen /LPF (None Seen); CRYSTALS None Seen /LPF (None Seen); SQUAMOUS 4-10 Moderate /LPF (0-3); URINE RBC None Seen /HPF (0-2)
[2018-08-18 13:45] LABS: ABSOLUTE NEUTROPHILS 1.7 thou/uL (1.4-8.2); ANISOCYTOSIS 1+; HYPOCHROMASIA SLIGHT; LARGE PLATELETS OCCASIONAL
[2018-08-18 13:46] LABS: PLATELET COUNT 60 thou/uL (150-400)
--- NOTE | 2018-08-18 17:13 | NUR ---
Assumed care of Pt on arrival to unit at approx 1430. pt presents in no acute distress. alert and oriented. denies pain. c/o SOA w/ activity. 1 unit pRBC currently infusing. plans for colonscopy in AM. vitals stable. SR on telemetry. pt progressing toward poc goals.
[2018-08-18 20:00] LABS: % SATURATION 28 % (20-39); IRON 67 ug/dL (50-170); TIBC 237 ug/dL (250-450)
[2018-08-18 22:17] LABS: HEMOGLOBIN 8.2 gm/dL (12.0-15.0)
[2018-08-19] VITALS: BP 128/73
[2018-08-19 04:00] VITALS: BP 135/71
--- NOTE | 2018-08-19 04:24 | NUR ---
PT ARRIVED BACK FROM [facility] BLEED SCAN AROUND 2004. A&Ox4. DENIES ANY PAIN OR SOA. BOWEL PREP COMPLETED. PT IS STILL HAVING LIQUID MAROON-COLORED STOOLS. UP TO BSC. AMBULATES WITH WALKER WELL. VSS. AFEBRILE. FALL PRECAUTIONS IN PLACE. PLANS FOR COLONOSCOPY TODAY. PROGRESSING TOWARD POC GOALS. WILL CONTINUE TO MONITOR FURTHER
[2018-08-19 05:32] LABS: HEMATOCRIT 22.3 % (37.0-47.0); HEMOGLOBIN 7.4 gm/dL (12.0-15.0); MCHC 33.3 g/dL (28.0-37.0); RBC 2.56 mil/uL (4.20-5.00); RDW 15.8 % (10.5-14.5); WBC 3.3 thou/uL (4.0-11.0)
[2018-08-19 07:54] VITALS: BP 128/79
--- NOTE | 2018-08-19 08:57 | EKG ---
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: [facility] : 1935 Requested By: Nai Ferrell Order Number: [id number] MD: Arjun Novak Measurements Intervals [place] Rate: 80 P: 50 [place]: 150 QRS: 33 QRSD: 75 T: 30 QT: 392 QTc: 453 Interpretive Statements Sinus rhythm No significant abnormality Compared to ECG 04/10/2018 10:29:56 Atrial premature complex(es) no longer present Electronically Signed On 08-19-2018 8:57:16 CDT by Arjun Novak [email or web address] ��������������������������������������������� <ELECTRONICALLY SIGNED> ���������������������������������������� By: Arjun Novak MD, [facility] ��������������������������������������������� 08/19/18 0857 1328 132 Arjun Novak MD, [facility] /EPI
[2018-08-19 11:04] VITALS: BP 119/67
--- NOTE | 2018-08-19 14:42 | NUR ---
INITIAL ASSESSMENT: SW reviewed chart and spoke with nursing. Pt was admitted from home due to GI bleed. Pt with hx of AVMs. Pt is currently off the unit having EGD/colonoscopy. GI recommends pt have M2 capsule study as an outpatient. Hgb to be checked tomorrow. Pt to be started on a regular diet this evening. Per chart, pt is alert/orientated. Pt lives at home. Plan is for pt to discharge home when medically stable. ESVIN is following to assist as needed with discharge planning.
[2018-08-19 15:10] VITALS: BP 149/72
[2018-08-19 16:13] LABS: HEMATOCRIT 23.3 % (37.0-47.0); HEMOGLOBIN 7.7 gm/dL (12.0-15.0); MCH 28.8 pg (26.0-34.0); MCHC 32.9 g/dL (28.0-37.0); MCV 87.5 fL (80.0-100.0); RBC 2.66 mil/uL (4.20-5.00); RDW 16.1 % (10.5-14.5)
--- NOTE | 2018-08-19 16:20 | NUR ---
Assumed care of Pt at 0700. Alert and oriented. In no acute distress. Breathing comfortably on room air. Denies pain. NPO since MN for EGD/Colonoscopy - results in procedure notes. hgb trending up. sinus on telemetry. calls out appropriately. anticipate d/c tomorrow if hgb stable. good progress toward poc goals.
[2018-08-19 19:30] VITALS: BP 135/62
[2018-08-20 05:26] LABS: HEMATOCRIT 22.3 % (37.0-47.0); HEMOGLOBIN 7.3 gm/dL (12.0-15.0); MCH 28.5 pg (26.0-34.0); MCHC 32.8 g/dL (28.0-37.0); MCV 86.8 fL (80.0-100.0); RBC 2.57 mil/uL (4.20-5.00); RDW 15.9 % (10.5-14.5); WBC 3.9 thou/uL (4.0-11.0)
--- NOTE | 2018-08-20 07:02 | NUR ---
ASSUMED CARE OF PT AT 1900. A&Ox4, COOPERATIVE. VS STABLE. DENIED PAIN. REQUESTED SLEEP, PROVIDED QUIET TIME MUCH POSSIBLE OVER NOC. PT ABLE TO REST, STATED SHE FELT MUCH BETTER AND IS READY FOR DC. NO BLEEDING. NO ACUTE DISTRESS, PROGRESSING TOWARDS POC GOALS.
[2018-08-20 07:07] VITALS: BP 117/59
[2018-08-20 11:18] VITALS: BP 123/54
[2018-08-20] MEDS ORDERED: CEFDINIR300 MG PO (11:23)
[2018-08-20 13:56] VITALS: BP 123/54
--- NOTE | 2018-08-20 14:05 | NUR ---
DISCHARGE NOTE: ESVIN reviewed chart and spoke with nursing and attending physician. Pt is medically stable for discharge home today with outpatient iron infusion. ESVIN met with pt at bedside to discuss discharge plan. Pt states she has been to the [facility] for outpatient iron infusion in the past. The [facility] at [address] cyber policy and strategy planner coordinated. Pt will be seen on August 24 at 1400. ESVIN updated nursing and attending physician. Requested order for iron infusion from physician. Contact info for [facility] placed in pt's discharge summary. Pt's family will provide transportation home. No additional SW needs identified at this time, but is available to assist should needs arise.
[2018-08-20 14:06] VITALS: BP 123/54
--- NOTE | 2018-08-20 14:07 | NUR ---
DISCHARGE PLANNING. PATIENT DISCHARGING TO HOME TODAY. WILL REQUIRE OUTPATIENT IV IRON INFUSION. PATIENT REQUESTING INFUSIONS TO BE COMPLETED AT THE INFUSION CLINIC LOCATED AT [address] [place] [address], [place] [address]. INFUSION CLINIC CONTACT NUMBER IS [phone] FAX NUMBER [phone]. INFUSION APPOINTMENTS MADE WITH SUSIE FOR August, [address] KAPOOR NOTIFIED. FACESHEET, H&P, IRON INFUSION ORDERS, DISCHARGE ORDERS AND DISCHARGE SUMMARY ALL FAXED TO [facility], INFUSION CLINIC CHARGE NURSE. UNIT RN NOTIFIED. UNIT SW AWARE OF ALL ABOVE.
--- NOTE | 2018-08-20 14:25 | NUR ---
IV AND TEELE DISCONTINUED. PT UNDERSTANDS ALL FOLLOW UP ORDERS. DISCHARGE TO HOME VIA PRIVATE VEHICLE.
--- NOTE | 2018-08-20 16:05 | PATH ---
[facility] [place] [address] PATHOLOGY RPT PROCEDURE Name: NADINE MOODY Room #: 350-P DIS IN M.R.#: [id number] ������������������ Admission: 08/18/18 ������������������ Date of : 35 Discharge: 08/20/18 Report #: [id number] Path Case #: [id number] LCA Accession Number: [id number] . 01 Material submitted: . PART A: duodenum - BX DUODENUM R/O CELIAC DISEASE PART B: rectum - POLYP AT RECTUM . 01 Clinical history: . Pre-OP DX: GI bleed Post-OP DX: Gastric AVM, rectal polyp, sigmoid diverticulosis, please refer to requisition for additional information . 02 Diagnosis: A. Small bowel mucosa, duodenum rule out celiac disease, endoscopic biopsy: - No diagnostic abnormalities present. - Negative for villous blunting or increase in intraepithelial lymphocytes. . B. Polyp, at rectum, endoscopic biopsy: - Markedly cauterized tissue with mild hyperplastic changes (please see comment). . (IUV:direct service worker; 08/20/2018) MBR/08/20/2018 . 02 Comment: Examination of the "polyp at rectum" shows markedly cauterized tissue with denuded surface epithelium and thermal cautery effect on the crypts. Dysplastic changes are not evident; however, interpretation is precluded by the thermal-cautery effect. Please correlate clinically. (IUV:direct service worker; 08/20/2018) . 02 Electronically signed: . Mary Toure MD, Pathologist NPI- [id number] . 01 Gross description: . A. Received in formalin labeled "Nadine Moody, BX duodenum, rule out celiac disease," is a single segment of [place] soft tissue measuring 0.4 cm in maximum dimension. The specimen is entirely submitted in cassette A1. . B. Received in formalin labeled "Nadine Moody, polyp at rectum," is a single segment of [place] soft tissue measuring 0.4 cm in maximum dimension. The specimen is entirely submitted in cassette B1. (TSD; 08/19/2018) [address] [address] PATHOLOGY RPT PROCEDURE Name: NADINE MOODY Room #: 350-P DIS IN M.R.#: [id number] ������������������ Admission: 08/18/18 ������������������ Date of : 35 Discharge: 08/20/18 Report #: [id number] Path Case #: [id number] TOB/TOB . 02 Pathologist provided ICD-10: K92.2 . 02 CPT . 998060, [id number] Specimen Comment: A courtesy copy of this report has been sent to Specimen Comment: [phone], . Specimen Comment: Report sent to / DR KAPOOR Performed at: [address] [facility], [place], [place] [id number] MD James Rae MD Phone: [phone] Performed at: [address] [facility] [id number] MD Mary Toure MD Phone: [phone]
== END 2018-08-20 14:23 | disposition home or self-care (01) | DRG 391 ==
LOC: ER 11:41 → 3W 13:12 → EROBS 13:12 → 3W 14:02
PROVIDERS: Internal Medicine Gastroenterology; Physician Assistant; ADMIT Family Medicine
PROC: 30233N1 Transfusion of Nonautologous Red Blood Cells into Peripheral Vein, Percutaneous Approach (ICD-10-PCS; principal; 2018-08-18)
PROC: 0D568ZZ Destruction of Stomach, Via Natural or Artificial Opening Endoscopic (ICD-10-PCS; 2018-08-19)
PROC: 0DBP8ZZ Excision of Rectum, Via Natural or Artificial Opening Endoscopic (ICD-10-PCS; 2018-08-19)
PROC: 0DB98ZX Excision of Duodenum, Via Natural or Artificial Opening Endoscopic, Diagnostic (ICD-10-PCS; 2018-08-19)
DX: K31.819 Angiodysplasia of stomach and duodenum without bleeding (principal); K57.31 Diverticulosis of large intestine without perforation or abscess with bleeding; N39.0 Urinary tract infection, site not specified; D61.818 Other pancytopenia; E89.0 Postprocedural hypothyroidism; K44.9 Diaphragmatic hernia without obstruction or gangrene; K22.2 Esophageal obstruction; D46.9 Myelodysplastic syndrome, unspecified; D50.9 Iron deficiency anemia, unspecified; Z88.1 Allergy status to other antibiotic agents; Z88.8 Allergy status to other drugs, medicaments and biological substances; Z86.010 Personal history of colon polyps; Z86.73 Personal history of transient ischemic attack (TIA), and cerebral infarction without residual deficits; Z79.899 Other long term (current) drug therapy; K62.1 Rectal polyp
CPT/HCPCS: 10879; 62110; 62900; 70005

== ENCOUNTER 2018-08-21 22:02 | Inpatient (IN) | payer OTHER, MEDICAID ==
[~2018-08-21] VITALS: Ht 152.4 cm; Wt 69.6 kg
[~2018-08-21 22:02] MED LIST changes: +CEFDINIR300 MG PO
[2018-08-21 22:11] VITALS: BP 86/50
[2018-08-21 23:19] LABS: WBC 3.6 thou/uL (4.0-11.0)
[2018-08-21 23:20] LABS: MCH 28.8 pg (26.0-34.0); MCV 87.2 fL (80.0-100.0); PLATELET COUNT 72 thou/uL (150-400); RBC 2.09 mil/uL (4.20-5.00); RDW 16.2 % (10.5-14.5)
[2018-08-21 23:30] LABS: ANION GAP 14 mmol/L (7-16); BUN 31 mg/dL (7-18); CALCIUM 7.9 mg/dL (8.5-10.1); CHLORIDE 107 mmol/L (98-107); CO2 21 mmol/L (21-32); GLUCOSE 137 mg/dL (74-106); POTASSIUM 3.4 mmol/L (3.5-5.1); SODIUM 142 mmol/L (136-145)
[2018-08-21 23:31] LABS: HEMATOCRIT 18.2 % (37.0-47.0)
[2018-08-21 23:38] LABS: APTT 25.4 Seconds (24.5-32.8); PROTIME 10.6 Seconds (9.3-11.4)
[2018-08-21 23:42] LABS: MAGNESIUM 1.9 mg/dL (1.8-2.4); SGOT 18 U/L (15-37); SGPT 12 U/L (30-65); TOTAL BILIRUBIN 0.3 mg/dL (<0.1-1.0); TOTAL PROTEIN 6.3 g/dL (6.4-8.2); TROPONIN-I <0.06 ng/mL (<0.06)
[2018-08-21 23:58] LABS: ABSOLUTE NEUTROPHILS 1.8 thou/uL (1.4-8.2); NUCLEATED RBCS 1 /100WBC
[2018-08-21 23:59] LABS: ANISOCYTOSIS 1+; LARGE PLATELETS SEVERAL; PLATELET ESTIMATE DECREASED
[2018-08-22] VITALS (9 sets, daily range): BP systolic 92–138; BP diastolic 38–65
[2018-08-22 05:46] LABS: HEMATOCRIT 18.7 % (37.0-47.0); HEMOGLOBIN 6.2 gm/dL (12.0-15.0)
--- NOTE | 2018-08-22 08:33 | NUR ---
PT. ARRIVED AT FLOOR AROUDN 0430; AOX4; ABLE TO AMBULATE WITH CANE X1 HELP; NO C/O PAIN; ON BED; NO C/O DIZZINESS; NO HEADACHE; HH ORDERED; PROVIDER NOTIFIED; ORDER RECEIVED; EDUCATED ABOUT FALL PREVENTIONS; ST. UNDERSTANDING; SOB WITH EXERTION; 2L OF 02; 100% O2 SAT ON BED REST; HH 6.2; 18.7; ORDERS RECEIVED; ASSESSMENT CHARGED; FOLLOWING POC; PASSED ON REPORT.
--- NOTE | 2018-08-22 10:37 | EKG ---
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 : 1935 Requested By: Fred Philip Order Number: [id number] MD: Eulalio Peters Measurements Intervals [place] Rate: 94 P: 45 MO: 142 QRS: 36 QRSD: 74 T: 16 QT: 358 QTc: 448 Interpretive Statements Sinus rhythm Nonspecific ST segment abnormalities Compared to ECG 08/18/2018 13:28:47 T-wave abnormality now present Electronically Signed On 08-22-2018 10:37:32 CDT by Eulalio Peters [email or web address] ��������������������������������������������� <ELECTRONICALLY SIGNED> ���������������������������������������� By: Eulalio Peters MD ��������������������������������������������� 08/22/18 1037 [id number] 55 Eulalio Peters MD /SHOBHA
[2018-08-22 13:25] LABS: HEMOGLOBIN 7.4 gm/dL (12.0-15.0)
[2018-08-22 13:26] LABS: HEMATOCRIT 21.9 % (37.0-47.0)
--- NOTE | 2018-08-22 15:41 | NUR ---
PATIENT ALERT AND ORIENTED, NPO, HGB 6.0, 2 UNITS OF BLOOD TO BE TRANSFUSED. ROCEPHIN INFUSED FOR UTI. CONTINUES TO HAVE DARK, BLOODY STOOLS, EGD ORDERED. PATIENT UPSET OVER OF GRANDSON YESTERDAY.
--- NOTE | 2018-08-23 01:59 | NUR ---
PATIENT ASSESSED AND IS ALERT X 4. SKIN WARM AND DRY. RESP EVEN AND UNLABORED. LUNGS CTA-DISM. UP TO BATHROOM WITH STAND-BY ASSIST WITH WALKER. SUKUMAR WELL. VOIDS WELL. LEFT WRIST IV FLUSHES WELL. NO NSKIN ISSUES. ON ROOM AIR. # 2 UNITE OF BLOOD STARTED AND WITNESSED PER ORDERS IN LEFT WRIST AREA. HAD NO ISSUES DURING THE 2 UNIT OF BLOOD. RECHECK H AND H AFTER UNIT. DENIES ANY PAIN OR SOA. NO BM THIS SHIFT SO FAR. WILL CONT TO MONITOR. CONT PLAN OF CARE.HAS LEFT LEG EDEMA NOTED 1+. NO NAUSEA STATED.
[2018-08-23 03:07] LABS: HEMATOCRIT 24.6 % (37.0-47.0); HEMOGLOBIN 8.3 gm/dL (12.0-15.0)
[2018-08-23 04:33] VITALS: BP 129/48
[2018-08-23 08:13] VITALS: BP 133/66
[2018-08-23 10:38] VITALS: BP 120/60
[2018-08-23 15:32] VITALS: BP 124/60
--- NOTE | 2018-08-23 15:50 | NUR ---
PATIENT ASSESSED AND ALERT AND ORIENTED, VITALS SIGNS STABLE, NO C/O PAIN, AMBULATES WITH WALKER AND STAND BY ASSIST. DR NO RECOMMENDS PATIENT BY OBSERVED UNTIL TOMORROW.
--- NOTE | 2018-08-23 16:10 | NUR ---
met with patient who admits with GI bleed. 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 She has a walker as needed at home. She is currently staying with son in [place]. She anticipates no needs at dc and does not feel home health needed. casemgt following.
[2018-08-23 17:53] LABS: HEMATOCRIT 28.6 % (37.0-47.0); HEMOGLOBIN 9.8 gm/dL (12.0-15.0)
[2018-08-23 19:54] VITALS: BP 130/59
[2018-08-24 04:23] LABS: HEMATOCRIT 27.7 % (37.0-47.0); HEMOGLOBIN 9.4 gm/dL (12.0-15.0); MCH 30.1 pg (26.0-34.0); MCHC 33.8 g/dL (28.0-37.0); MCV 88.8 fL (80.0-100.0); RBC 3.11 mil/uL (4.20-5.00); RDW 15.2 % (10.5-14.5); WBC 3.1 thou/uL (4.0-11.0)
--- NOTE | 2018-08-24 04:37 | NUR ---
pt resting quietly in room on and off, vss, pt states blood still noted when up to br on tissue yet getting less and less noticable, no c/o pain, hoping to go home today, will con't to monitor per ppoc.
[2018-08-24 05:03] VITALS: BP 143/60
[2018-08-24 07:18] VITALS: BP 140/61
[2018-08-24 11:10] VITALS: BP 102/70
--- NOTE | 2018-08-24 11:31 | NUR ---
PATIENT ALERT AND ORIENTED, NO SKIN ISSUES, UP AD LEXIE WITH WALKER, NO C/O PAIN, DC'D LEFT WRIST IV, IV STARTED IN RIGHT ARM TO INFUSE IRON AND ROCEPHIN BEFORE DISCHARGE. PATIENT HAS NO NEEDS.
[2018-08-24 11:48] VITALS: BP 102/70
--- NOTE | 2018-08-24 13:02 | NUR ---
PATIENT LEFT FOREARM IV SITE DC'D. DISCHARGE INFORMATION GIVEN TO PATIENT, PATIENT STATED UNDERSTANDING. VOLUTEER ESCORTED PATIENT OUT OF UNIT BY WHEELCHAIR
--- NOTE | 2018-08-25 09:07 | O ---
[facility] [place] [address] [place] [address] OPERATIVE REPORT Name: NADINE ARROYO Room #: 213-P [facility] IN M.R.#: [id number] Admission: 08/21/18 ������������������ Attend Phys: Deshawn Whitlock MD Discharge: 08/24/18 ������������������ Date of : 35 Report #: [id number] THIS REPORT FOR: //name// CC: Deshawn Whitlock DATE OF SERVICE: 08/22/2018 SURGEON: Denny Cramer MD. PREOPERATIVE DIAGNOSIS: GI bleeding. POSTOPERATIVE DIAGNOSIS: See below. ANESTHESIA USED: See anesthesia notes. PROCEDURE PERFORMED: 1. Esophagogastroduodenoscopy. 2. Flexible sigmoidoscopy. INDICATION FOR PROCEDURE: As above. FINDINGS: 1. Recent bleeding noted to proximal extent of flexible sigmoidoscopy. 2. Recent superficial AVM treatment ulcer in the antrum of the stomach. 3. No evidence of any active bleeding below the sigmoid stricture. DESCRIPTION OF PROCEDURE: The risks and benefits of the procedure were explained in detail prior to monitored anesthesia. The patient was placed in left lateral decubitus position. Tip of the Olympus video endoscope was advanced into the oropharynx, esophagus, stomach and to the third portion of duodenum. Close inspection of the upper gastrointestinal mucosa was obtained upon slow withdrawal of the endoscope. The duodenum was normal in appearance without evidence of erosion or ulceration. The gastric antrum revealed a superficial ulcer, suspected secondary to recent AVM treatment on of last week by Dr. De La Cruz. There was no evidence of high risk bleeding from this superficial ulcer, and there was no active bleeding or recent bleeding noted in the stomach. The gastric body was normal in appearance, otherwise, retroflexion allowed close inspection of the cardia and the fundus, which revealed a small hiatal hernia, and a Schatzki ring. The GE junction was approximately 38 cm from the incisors and was normal. The patient was turned and digital rectal exam was performed with examination of old blood. No evidence of bright blood. The blood smelled of melena. The video endoscope was advanced into the rectum and gently to the sigmoid stricture as previously documented. Attempts to get beyond the stricture revealed no success. There was old blood emanating from the area proximal to the stricture [facility] [address] [place] [address] OPERATIVE REPORT Name: NADINE ARROYO Room #: 213-P [facility] IN M.R.#: [id number] Admission: 08/21/18 ������������������ Attend Phys: Deshawn Whitlock MD Discharge: 08/24/18 ������������������ Date of : 35 Report #: [id number] and covering the entire distal sigmoid and rectum. This was copiously irrigated without evidence of any significant bleeding source below the stricture. This led us to believe that the bleeding source is above the stricture. Since the patient was prepped only for a flexible sigmoidoscopy and had a difficult colonoscopy on with negotiation past the stricture, but incomplete evaluation to the cecum, the procedure was abandoned. The patient tolerated both procedures well and was discharged to recovery. IMPRESSION: 1. No evidence of active bleeding or remote bleeding on upper endoscopy. 2. Evidence of recent bleeding as described on flexible sigmoidoscopy. PLAN: 1. Bleeding scan today stat. 2. Surgical evaluation to follow along for significant GI bleed and limited ability to reach the cecum. ��������������������������������������������� <ELECTRONICALLY SIGNED> ���������������������������������������� By: Oleg Ulloa MD ��������������������������������������������� 08/25/18 0907 1433 0843 Denny Cramer MD /nt
--- NOTE | 2018-08-25 09:07 | HC ---
[facility] [place] [address] [place] [address] CONSULTATION Name: NADINE ARROYO Room #: 213-P [facility] IN M.R.#: [id number] Admission: 08/21/18 ������������������ Attend Phys: Deshawn Whitlock MD Discharge: 08/24/18 ������������������ Date of : 35 Report #: [id number] THIS REPORT FOR: //name// CC: Deshawn Whitlock SUBJECTIVE: The patient is an 82-year-old female who had colonoscopy and EGD on by my partner, Dr. Dona De La Cruz, at which time the upper endoscopy revealed a nonbleeding AVM which was treated; small hiatal hernia and Schatzki ring. In addition, she had an inflammatory polyp in the rectum, which was removed using snare electrocautery. There was an incomplete inspection of the colon beyond the ascending colon secondary to a narrowing in the sigmoid colon, thought likely secondary to sigmoid diverticulosis. 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 She re-presents with persistent bleeding. The bleeding is bright red, but also there is some darkness to the bleeding. She has no significant abdominal pain, but does have a significant anemia. PAST MEDICAL HISTORY: Well outlined in the chart, but includes a CVA in the past, AVMs of the cecum, chest pain, fall, hypokalemia, hypothyroid, myelodysplastic syndrome, constipation, urinary tract infection. ALLERGIES: SHE IS ALLERGIC TO DOXYCYCLINE, LEVOFLOXACIN, TETRACYCLINE, ATORVASTATIN. FAMILY HISTORY AND SOCIAL HISTORY: Noncontributory. SURGICAL HISTORY: Thyroidectomy, bone marrow biopsy. Colonoscopy with perforation and surgical repair on 01/17. Aortic stenosis, myelodysplasia. REVIEW OF SYSTEMS: Positive for weakness and fatigue. She denies head, eyes, ears, nose or throat complaints. Denies chest pain, chest palpitation, chest pressure, cough, shortness of breath, wheezing, genitourinary, musculoskeletal or neuropsychiatric complaints. PHYSICAL EXAMINATION: VITAL SIGNS: Afebrile. Vital signs stable. HEENT: Nonicteric. NECK: No JVD, thyromegaly or bruits. CARDIOVASCULAR: Regular. LUNGS: Clear. There is a systolic murmur. ABDOMEN: Soft, nondistended, nontender, normoactive bowel sounds. No hepatosplenomegaly. No stigmata of chronic liver disease. No abnormal masses or bruits. EXTREMITIES: Deferred. NEUROLOGIC: Deferred. RECTAL: Deferred. [address] [address] CONSULTATION Name: NADINE ARROYO Room #: 213-P [facility] IN ..#: [id number] Admission: 08/21/18 ������������������ Attend Phys: Deshawn Whitlock MD Discharge: 08/24/18 ������������������ Date of : 35 Report #: [id number] PERTINENT LABORATORY DATA: Includes hemoglobin 6.2 on presentation, now 7.4. INR 1.0. Chemistry: BUN 31, creatinine 1.0, potassium 3.4. Normal liver tests. BNP 2169. ASSESSMENT AND PLAN: In summary, the patient has rectal bleeding, which may be secondary to recent procedures including a snare polypectomy of the rectum and/or AVMs, either in the cecum or the stomach. We will proceed with upper endoscopy and flexible sigmoidoscopy for further evaluation. She is not prepped for a colonoscopy at this point. May need to be if no source for her bleeding is noted. Thanks for allowing us to participate in her care. ��������������������������������������������� <ELECTRONICALLY SIGNED> ���������������������������������������� By: Oleg Ulloa MD ��������������������������������������������� 08/25/18 0907 1333 0827 Denny Cramer MD /nt
== END 2018-08-24 13:08 | disposition home or self-care (01) | DRG 378 ==
LOC: ER 22:02 → 2N 23:57 → EROBS 23:57 → 2N 08-22 03:10 → ENTRNSPT 08-24 12:47 → EDTRNSPTSTS 08-24 12:49 → 2N 08-24 13:08
PROVIDERS: Emergency Medicine; Nurse Practitioner; ADMIT Family Medicine
DX: K31.811 Angiodysplasia of stomach and duodenum with bleeding (principal); N39.0 Urinary tract infection, site not specified; I69.354 Hemiplegia and hemiparesis following cerebral infarction affecting left non-dominant side; K25.4 Chronic or unspecified gastric ulcer with hemorrhage; D69.6 Thrombocytopenia, unspecified; E03.9 Hypothyroidism, unspecified; D46.9 Myelodysplastic syndrome, unspecified; K44.9 Diaphragmatic hernia without obstruction or gangrene; K22.2 Esophageal obstruction; Z53.8 Procedure and treatment not carried out for other reasons; K59.00 Constipation, unspecified; E87.6 Hypokalemia; Z66 Do not resuscitate; D50.9 Iron deficiency anemia, unspecified; Z88.1 Allergy status to other antibiotic agents; Z88.8 Allergy status to other drugs, medicaments and biological substances; Z79.899 Other long term (current) drug therapy
CPT/HCPCS: 10081; 62110; 62900

== ENCOUNTER 2018-11-29 11:44 | Inpatient (IN) | payer OTHER, MEDICAID ==
[~2018-11-29] VITALS: Ht 157.5 cm; Wt 68.0 kg
[2018-11-29] VITALS (7 sets, daily range): BP systolic 117–138; BP diastolic 51–62
[2018-11-29 12:10] LABS: MCHC 32.6 g/dL (28.0-37.0); MCV 89.1 fL (80.0-100.0); RBC 2.12 mil/uL (4.20-5.00); RDW 17.4 % (10.5-14.5); WBC 2.6 thou/uL (4.0-11.0)
[2018-11-29 12:14] LABS: ANION GAP 11 mmol/L (7-16); BUN 21 mg/dL (7-18); CALCIUM 8.6 mg/dL (8.5-10.1); CHLORIDE 107 mmol/L (98-107); CO2 23 mmol/L (21-32); GLUCOSE 125 mg/dL (74-106); POTASSIUM 3.9 mmol/L (3.5-5.1); SODIUM 141 mmol/L (136-145)
[2018-11-29 12:15] LABS: HEMATOCRIT 18.9 % (37.0-47.0); HEMOGLOBIN 6.2 gm/dL (12.0-15.0)
[2018-11-29 12:20] LABS: URINE BILIRUBIN NEGATIVE (Negative); URINE BLOOD NEGATIVE (Negative); URINE CLARITY CLEAR; URINE COLOR YELLOW; URINE GLUCOSE-RANDOM* NEGATIVE (Negative); URINE KETONES NEGATIVE (Negative); URINE LEUKOCYTES-REFLEX TRACE (Negative); URINE NITRITE-REFLEX NEGATIVE (Negative); URINE PROTEIN (DIPSTICK) NEGATIVE (Negative); URINE UROBILINOGEN 0.2 E.U./dl (0.2-1.0)
[2018-11-29 12:24] LABS: ALBUMIN 3.5 g/dL (3.4-5.0); SGOT 20 U/L (15-37); SGPT 13 U/L (30-65); TOTAL BILIRUBIN 0.5 mg/dL (<0.1-1.0); TOTAL PROTEIN 7.1 g/dL (6.4-8.2); TROPONIN-I <0.06 ng/mL (<0.06)
--- NOTE | 2018-11-29 17:59 | NUR ---
PT ARRIVED FROM ER AT APPROX 1620 WITH ALL BELONGINGS BY ER STAFF. PT ALERT AND ORIENTED. VSS, DENIES PAIN. DENIES SOB. O2 SATS WNL ON RA. ORDER FOR BLOOD TRANSFUSION ORDERED IN ER, WAS NOT ADMINISTERED IN ER EVEN THOUGH BLOOD BANK HAD INFORMED THEM BLOOD WAS READY. TRANSFUSION STARTED WITH THIS NURSE AT APPROX 1716, PT TOLERATING WELL. ADMISSION COMPLETE, TELEMETRY SHEET DISCUSSED WITH PT, COMMUNICATES UNDERSTANDING AND SIGNED. DENIES CONCERNS AT THIS TIME. WILL CONT TO MONITOR.
--- NOTE | 2018-11-29 19:47 | NUR ---
PT CONTINUES TO BE ALERT AND ORIENTED, VSS, DENIES PAIN. 1 UNIT BLOOD TRANSFUSION COMPLETED. TOLERATED WELL. UP SBA WITH WALKER TOLERATING WELL. DENIES CONCERNS AT THIS TIME. WILL CONT TO MONITOR AND FOLLOW POC.
[2018-11-29 19:53] LABS: HEMATOCRIT 20.4 % (37.0-47.0); HEMOGLOBIN 6.8 gm/dL (12.0-15.0)
[2018-11-30] VITALS (7 sets, daily range): BP systolic 112–134; BP diastolic 44–65
[2018-11-30 03:03] LABS: HEMATOCRIT 29.2 % (37.0-47.0)
[2018-11-30 03:04] LABS: HEMOGLOBIN 9.5 gm/dL (12.0-15.0)
--- NOTE | 2018-11-30 05:17 | NUR ---
0122 PT HAD JUST GOTTEN BACK TO BED FROM THE BATHROOM AND HAD 14 BEAT SVT PT ASYMPTOMATIC WITH AND HR WENT RIGHT BACK NSR.
--- NOTE | 2018-11-30 05:25 | NUR ---
PT RESTING IN BED. REMAIN ON RA. PT HAS RECEIVED 2 UNITS PRBCs TOTAL SINCE ADMIT. PT SR ON MONITOR. CONTINUES WITH SERIAL H&H LAB DRAWS.
--- NOTE | 2018-11-30 08:36 | EKG ---
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 : 1935 Requested By: Clair Doyle Order Number: [id number] MD: Arjun Novak Measurements Intervals [place] Rate: 91 P: 54 [place]: 147 QRS: 35 QRSD: 75 T: 30 QT: 350 QTc: 431 Interpretive Statements Sinus rhythm Nonspecific ST segment abnormality Compared to ECG 08/21/2018 22:56:04 No significant changes Electronically Signed On 11-30-2018 8:36:45 CDT by Arjun Novak [email or web address] <ELECTRONICALLY SIGNED> By: Arjun Novak MD, [facility] 11/30/18 0836 1226 1226 Arjun Novak MD, [facility] /EPI
--- NOTE | 2018-11-30 09:48 | NUR ---
PT NPO FOR M2 CAPSULE STUDT. REINFORCE TEACHING FOR PT TO USE CALL LIGHT IF NEEDIING TO GET OUT OF BED. WILL CONTINUE TO ASSESS.
[2018-11-30 10:49] LABS: HEMATOCRIT 27.9 % (37.0-47.0); HEMOGLOBIN 9.4 gm/dL (12.0-15.0)
--- NOTE | 2018-11-30 15:40 | NUR ---
spoke with Dr Kamlesh lerma dc later this evening with no needs from caset.
--- NOTE | 2018-11-30 18:16 | NUR ---
INSTRUCTED BY EMELIA TO PLACE DISCHARGE ORDER. DISCONTINUE IV AND TELE. PT UNDERTSANDS ALL FOLLOW UP ORDERS.
== END 2018-11-30 18:39 | disposition home or self-care (01) | DRG 378 ==
LOC: ER 11:44 → EROBS 14:09 → 2N 14:09 → EROBS 14:19 → 2N 16:00
PROVIDERS: Nurse Practitioner; Student in an Organized Health Care Education/Training Program; ADMIT Family Medicine
PROC: 30233N1 Transfusion of Nonautologous Red Blood Cells into Peripheral Vein, Percutaneous Approach (ICD-10-PCS; principal; 2018-11-29)
DX: K92.2 Gastrointestinal hemorrhage, unspecified (principal); D62 Acute posthemorrhagic anemia; E89.0 Postprocedural hypothyroidism; I35.0 Nonrheumatic aortic (valve) stenosis; D46.9 Myelodysplastic syndrome, unspecified; I10 Essential (primary) hypertension; D69.6 Thrombocytopenia, unspecified; Z79.899 Other long term (current) drug therapy; Z88.8 Allergy status to other drugs, medicaments and biological substances; Z88.1 Allergy status to other antibiotic agents
CPT/HCPCS: 10081

== ENCOUNTER 2019-01-07 13:41 | Inpatient (IN) | payer OTHER, MEDICAID ==
[~2019-01-07] VITALS: Ht 157.5 cm; Wt 68.5 kg
[2019-01-07] VITALS (7 sets, daily range): BP systolic 106–137; BP diastolic 48–66
[2019-01-07 13:55] LABS: URINE BILIRUBIN NEGATIVE (Negative); URINE BLOOD TRACE (Negative); URINE CLARITY CLEAR; URINE COLOR YELLOW; URINE GLUCOSE-RANDOM* NEGATIVE (Negative); URINE KETONES NEGATIVE (Negative); URINE NITRITE-REFLEX NEGATIVE (Negative); URINE PROTEIN (DIPSTICK) NEGATIVE (Negative); URINE SPECIFIC GRAVITY 1.025 (1.005-1.035); URINE UROBILINOGEN 0.2 E.U./dl (0.2-1.0)
[2019-01-07 13:56] LABS: URINE LEUKOCYTES-REFLEX 2+ (Negative)
[2019-01-07 14:03] LABS: SQUAMOUS >10 Many /LPF (0-3)
[2019-01-07 14:04] LABS: MUCUS 0-3 Light strn/LPF (None Seen)
[2019-01-07 14:06] LABS: CASTS None Seen /LPF (None Seen); URINE WBC-REFLEX 6-15 Few /HPF (0-5)
[2019-01-07 14:07] LABS: CRYSTALS None Seen /LPF (None Seen); URINE RBC 0-2 Rare /HPF (0-2)
[2019-01-07 14:08] LABS: HEMOGLOBIN 6.5 gm/dL (12.0-15.0); MCH 28.1 pg (26.0-34.0)
[2019-01-07 14:10] LABS: MCHC 32.4 g/dL (28.0-37.0); MCV 86.5 fL (80.0-100.0); RBC 2.31 mil/uL (4.20-5.00); RDW 16.3 % (10.5-14.5); WBC 3.3 thou/uL (4.0-11.0)
[2019-01-07 14:17] LABS: CALCIUM 8.1 mg/dL (8.5-10.1); CREATININE 1.1 mg/dL (0.6-1.0); POTASSIUM 3.9 mmol/L (3.5-5.1)
[2019-01-07 14:23] LABS: ALBUMIN 3.4 g/dL (3.4-5.0); TOTAL BILIRUBIN 0.4 mg/dL (<0.1-1.0); TOTAL PROTEIN 6.9 g/dL (6.4-8.2)
[2019-01-07 14:44] LABS: ABSOLUTE NEUTROPHILS 1.7 thou/uL (1.4-8.2)
[2019-01-07 14:45] LABS: ANISOCYTOSIS 1+; LARGE PLATELETS SEVERAL; PLATELET COUNT 48 thou/uL (150-400)
--- NOTE | 2019-01-07 20:03 | NUR ---
ASSUMED CARE OF PATIENT APPROX. 1930, PT A&OX4, VSS, DENIES PAIN. PATIENT RECEIVING 1 UNIT OF PRBC STARTED AT 2001. TOLERATING CLEAR LIQUID DIET. FALL PRECAUTIONS IN PLACE, WILL CONTINUE TO MONITOR.
--- NOTE | 2019-01-07 20:30 | NUR ---
PT HAD EPISODE OF TACHYCARDIA APPROX. 1756. PT OBSERVED AND DENIED CHEST PAIN AND SOA. PATIENT IN BED STABLE. TELEMETRY STRIP OF EVENT PRINTED AND PLACED IN CHART.
[2019-01-08 01:57] LABS: HEMATOCRIT 21.7 % (37.0-47.0)
--- NOTE | 2019-01-08 02:02 | NUR ---
ASSESSMENT: PT REMAIN ALERT AND ORIENT TIMES FOUR. UP TO BR WITH WALKER, SBA. PT RECEIVED ONE UNIT OF PRBC. PT TOLERATED THE INFUSION WELL. VSS, AFEBRILE. HGB INCREASED TO 7.0 AFTER INFUSION. NO ORDERS TO INFUSE ANOTHER UNIT AT THIS TIME. SR PER MONITOR. NO BM THIS SHIFT THUS FAR. SLOW PROGRESS TOWARDS DC GOALS. WILL CONTINUE TO MONITOR.
[2019-01-08 03:18] VITALS: BP 110/64
[2019-01-08 07:33] VITALS: BP 108/54
--- NOTE | 2019-01-08 11:13 | EKG ---
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 : 1935 Requested By: Brooklynn Diamond Order Number: [id number] MD: Eulalio Peters Measurements Intervals [place] Rate: 87 P: 47 [place]: 147 QRS: 29 QRSD: 76 T: 39 QT: 362 QTc: 436 Interpretive Statements Sinus rhythm Atrial premature complex Compared to ECG 11/29/2018 12:26:49 Atrial premature complex(es) now present ST (T wave) deviation no longer present Electronically Signed On 01-08-2019 11:13:40 CDT by Eulalio Peters [email or web address] <ELECTRONICALLY SIGNED> By: Eulalio Peters MD 01/08/19 1113 1357 1357 Eulalio Peters MD /SHOBHA
[2019-01-08 12:03] VITALS: BP 105/58; BP 114/80
[2019-01-08 15:35] VITALS: BP 108/54
[2019-01-08 16:01] VITALS: BP 114/80
--- NOTE | 2019-01-08 16:54 | NUR ---
PT ALERT AND ORIENTED TIMES FOUR. VSS, 97%RA, SR ON TELE. PT DENEIS PAIN/SOA. ONE UNIT OF PRBC GIVEN TO PT WITHOUT ISSUES. PT TOLERATES MEDS AND MEALS. PLANS TO DISCHARGE AFTER BLOOD TRANSFUSION. PT PROGRESSING TOWRADS POC GOALS.
== END 2019-01-08 17:33 | disposition home or self-care (01) | DRG 378 ==
LOC: ER 13:41 → EROBS 14:41 → 3W 16:00
PROVIDERS: Nurse Practitioner Family; ADMIT Family Medicine
PROC: 30233N1 Transfusion of Nonautologous Red Blood Cells into Peripheral Vein, Percutaneous Approach (ICD-10-PCS; principal; 2019-01-07)
DX: K55.21 Angiodysplasia of colon with hemorrhage (principal); N39.0 Urinary tract infection, site not specified; I69.354 Hemiplegia and hemiparesis following cerebral infarction affecting left non-dominant side; E89.0 Postprocedural hypothyroidism; D64.9 Anemia, unspecified; K57.90 Diverticulosis of intestine, part unspecified, without perforation or abscess without bleeding; D69.6 Thrombocytopenia, unspecified; K63.89 Other specified diseases of intestine; K63.5 Polyp of colon; Z88.1 Allergy status to other antibiotic agents; Z88.8 Allergy status to other drugs, medicaments and biological substances; Z79.899 Other long term (current) drug therapy
CPT/HCPCS: 10879

== ENCOUNTER 2019-04-03 22:22 | Inpatient (IN) | payer OTHER, MEDICAID ==
[~2019-04-03] VITALS: Ht 154.9 cm; Wt 81.0 kg
[2019-04-03 22:24] VITALS: BP 126/52
[2019-04-03] MEDS ORDERED: LEVO-T50 MCG PO (22:27)
--- NOTE | 2019-04-03 22:38 | NUR ---
SON RECORDING STAFF, HAVE REQUESTED HE NOT FILM STAFF. SECURITY INFORMED, SON STATES HE WILL RECORD MOTHER
[2019-04-03 22:56] LABS: ANION GAP 12 mmol/L (7-16); BUN 26 mg/dL (7-18); CALCIUM 7.9 mg/dL (8.5-10.1); CHLORIDE 101 mmol/L (98-107); CO2 23 mmol/L (21-32); CREATININE 1.2 mg/dL (0.6-1.0); GLUCOSE 140 mg/dL (74-106); POTASSIUM 3.1 mmol/L (3.5-5.1); SODIUM 136 mmol/L (136-145)
[2019-04-03 23:00] LABS: APTT 29.5 Seconds (24.5-32.8); PROTIME 10.7 Seconds (9.3-11.4)
[2019-04-03 23:06] LABS: ALBUMIN 3.4 g/dL (3.4-5.0); MAGNESIUM 1.7 mg/dL (1.8-2.4); SGOT 19 U/L (15-37); SGPT 14 U/L (30-65); TOTAL BILIRUBIN 0.4 mg/dL (<0.1-1.0); TOTAL PROTEIN 7.7 g/dL (6.4-8.2); TROPONIN-I <0.06 ng/mL (<0.06)
[2019-04-04] VITALS (11 sets, daily range): BP systolic 92–139; BP diastolic 45–79
[2019-04-04] LABS: HEMOGLOBIN 7.2 gm/dL (12.0-15.0); PLATELET COUNT 27 thou/uL (150-400); RBC 2.61 mil/uL (4.20-5.00); RDW 16.6 % (10.5-14.5); WBC 3.3 thou/uL (4.0-11.0)
[2019-04-04 00:02] LABS: HEMATOCRIT 22.4 % (37.0-47.0); MCH 27.7 pg (26.0-34.0); MCHC 32.3 g/dL (28.0-37.0); MCV 85.8 fL (80.0-100.0)
[2019-04-04 00:43] LABS: ABSOLUTE NEUTROPHILS 2.6 thou/uL (1.4-8.2); METAMYELOCYTES 1 %
[2019-04-04 00:44] LABS: ANISOCYTOSIS 1+; LARGE PLATELETS FEW; PLATELET ESTIMATE DECREASED
--- NOTE | 2019-04-04 04:11 | NUR ---
ADMIT.PT ADMITTED FROM ED VIA CART.A/OX4.PT SEEMS LETHARGIC,PALE AND WEAK.PT ADMITTED BEING FATIQUED EASLIY.DENIES SOA.LABS NOTED.DX GI BLEED ADN LOW PLATELETS.ORIENTED PT TO ADN UNIT ACTIVITIES.POC REVIEWED AND PT INAGREEMENT.ADMISSION ASSESSMENT COMPLETED DOCUMENTED.PLATELETS INFUSION ORDERED,INFUSING AT THIS TIME.VSS.PT HYPOTENSIVE.SINUS RHYTHM ON MONITOR.ON RA W/O RESP DISTRESS.FALLS ASLEEP VERY EASILY.PT DENIES PAIN OR ANY OTHER DISCOMFORT AT THIS TIME.PT AGREE TO DNR STATUS,WILL NOTIFY DR KAPOOR FOR ORDERS.IVF INFUSING.DENIES ANY OTHER CONCERNS.WILL CONT TO MONITOR PER POC.
--- NOTE | 2019-04-04 07:32 | NUR ---
platelets infused without adverse efect.pt tolerated well w/o concerns.blood pressure holding in 90s sbp,denies dizziness.pt sleeping alot but easy to arouse.Denies any needs at this time.will cont to monitor per poc.
--- NOTE | 2019-04-04 08:14 | EKG ---
[address] [address] ELECTROCARDIOGRAM REPORT Name: NADINE ARROYO Room #: 212-P ADM IN M.R.#: [id number] Admission: 04/04/19 Attend Phys: Deshawn Whitlock MD Discharge: Date of : 35 Report #: [id number] THIS REPORT FOR: //name// [facility] ED Test Date: 2019-04-03 Test Time: 22:27:59 Pat Name: NADINE ARROYO Department: Room: 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
[2019-04-04 09:03] LABS: HEMOGLOBIN 7.1 gm/dL (12.0-15.0); MCH 27.6 pg (26.0-34.0)
[2019-04-04 09:04] LABS: HEMATOCRIT 21.8 % (37.0-47.0); MCHC 32.3 g/dL (28.0-37.0); MCV 85.3 fL (80.0-100.0); RBC 2.56 mil/uL (4.20-5.00); RDW 16.5 % (10.5-14.5)
--- NOTE | 2019-04-04 18:20 | NUR ---
ASSESSMENT CHARTED. PT ALERT AND ORIENTED. HAD BLOODY STOOL THIS SHIFT. DR. CARRIZALES AWARE. ORDERS NOTED. H&H ORDERED. DR KAPOOR UPDATED ON PT'S PROGRESS. ORDERS GIVEN TO TRANSFUSE 1 UNIT OF RBC. WILL CONTINUE TO MONITOR.
[2019-04-04 20:31] LABS: HEMATOCRIT 20.3 % (37.0-47.0)
[2019-04-04 20:32] LABS: HEMOGLOBIN 6.6 gm/dL (12.0-15.0)
--- NOTE | 2019-04-04 22:25 | NUR ---
PT RESTING IN BED AT THIS TIME.PT HAS ORDERS TO TRANSFUSE I UNIT OF PACKED RED BLOOD CELLS.ON ASSESSMENT NOTED FEVER OF 103.3 ORALLY,TYLENOL WAS GIVEN AND BLOOD TRANSFUSION PUT ON HOLD,DR KAPOOR NOTIFIED,ORDERED CHEST XRAY,BLOOD CULTURES X2 AND URINALYSIS.CHEST XRAY SHOWED VASCULAR CONGESTION,RESULTS CALLED IN TO DR KAPOOR ORDERED LASIX 40MG X1 AND TYLENOL SUPPOSITORY TO MANAGE FEVER.BLOOD TRANSFUSION ON HOLD STILL.TEMP AT THIS TIME 100.1 ORALLY.PT LETHARGIC AND FATIQUE EASILY.PT DENIES ANY NEEDS AT THIS TIME.WILL CONT TO MONITOR PER POC.
[2019-04-04 22:38] LABS: URINE BILIRUBIN NEGATIVE (Negative); URINE BLOOD 3+ (Negative); URINE CLARITY CLEAR; URINE COLOR YELLOW; URINE GLUCOSE-RANDOM* NEGATIVE (Negative); URINE KETONES NEGATIVE (Negative); URINE LEUKOCYTES-REFLEX NEGATIVE (Negative); URINE PROTEIN (DIPSTICK) TRACE (Negative); URINE SPECIFIC GRAVITY 1.015 (1.005-1.035); URINE UROBILINOGEN 0.2 E.U./dl (0.2-1.0)
[2019-04-04 22:42] LABS: URINE NITRITE-REFLEX POSITIVE (Negative)
[2019-04-04 23:02] LABS: SQUAMOUS 0-3 Few /LPF (0-3)
[2019-04-04 23:03] LABS: CRYSTALS None Seen /LPF (None Seen); HYALINE CASTS 0-3 Few /LPF (None Seen); MUCUS 0-3 Light strn/LPF (None Seen); URINE RBC 3-10 Few /HPF (0-2); URINE WBC-REFLEX 0-5 Rare /HPF (0-5)
[2019-04-05 03:06] LABS: WBC 2.4 thou/uL (4.0-11.0)
[2019-04-05 03:08] LABS: HEMATOCRIT 22.4 % (37.0-47.0); HEMOGLOBIN 7.2 gm/dL (12.0-15.0); MCH 27.4 pg (26.0-34.0); MCHC 32.3 g/dL (28.0-37.0); MCV 84.8 fL (80.0-100.0); RBC 2.64 mil/uL (4.20-5.00); RDW 16.5 % (10.5-14.5)
[2019-04-05 03:11] LABS: CALCIUM 7.4 mg/dL (8.5-10.1); CREATININE 1.2 mg/dL (0.6-1.0); POTASSIUM 3.4 mmol/L (3.5-5.1)
[2019-04-05 05:38] VITALS: BP 110/94
[2019-04-05 07:57] VITALS: BP 111/53
[2019-04-05 11:42] VITALS: BP 113/59
[2019-04-05 12:37] VITALS: BP 106/47; BP 113/59
--- NOTE | 2019-04-05 15:28 | NUR ---
patient admits with Gi bleed. She resides at home with son and family. She reports all needs on one level at home. She uses a cane, walker as needed. She does not wear oxygen at home. Visited with patient briefly she reports back pain and kept eyes closed during visit. Updated RN.
[2019-04-05 17:05] VITALS: BP 81/46
[2019-04-05 17:30] LABS: HEMATOCRIT 24.8 % (37.0-47.0); HEMOGLOBIN 8.3 gm/dL (12.0-15.0)
--- NOTE | 2019-04-05 17:38 | NUR ---
ASSESSMENT CHARTED. PT ALERT AND ORIENTED. RECEIVED 1 UNIT OF BLOOD THIS SHIFT. STILL HAVING BLOODY STOOLS. DR. CARRIZALES AND DR. KAPOOR AWARE. NPO AFTER MIDNIGHT FOR COLONOSCOPY IN AM. FAMILY NOTIFIED OF PT'S PROGRESS. WILL CONTINUE TO MONITOR.
[2019-04-05 17:47] LABS: CALCIUM 7.3 mg/dL (8.5-10.1); CREATININE 1.5 mg/dL (0.6-1.0); MAGNESIUM 1.6 mg/dL (1.8-2.4); POTASSIUM 3.1 mmol/L (3.5-5.1)
[2019-04-05 19:50] VITALS: BP 91/50
[2019-04-06] VITALS (7 sets, daily range): BP systolic 83–101; BP diastolic 48–63
[2019-04-06 00:11] LABS: HEMATOCRIT 28.1 % (37.0-47.0)
[2019-04-06 00:12] LABS: HEMOGLOBIN 9.1 gm/dL (12.0-15.0)
--- NOTE | 2019-04-06 05:34 | NUR ---
ASSESSMENTS CHARTED. MEDS GIVEN CHARTED. TOOK OVER CARE OF PATIENT AT 2300. PATIENT HAD COMPLETED BOWEL PREP INTAKE PRIOR TO MY ARRIVAL, WAS UP TO BSC WITH ASSIST OF TWO UNTIL SHE WAS TOO WEAK THEN SHE USED THE BEDPAN. SHE HAS BEEN NPO SINCE MIDNIGHT. H&H AT 2330 WAS HIGHER THAN PREVIOUS RESULTS SO DID NOT CALL DR. KAPOOR. PATIENT POSITIVE FOR GRAM POSITIVE COCCI IN BLOOD. THAT RESULT HAD ALREADY BEEN GIVEN AND DOCTOR NOTIFIED. BP VERY SOFT. CXR SHOWED STABLE CHARONIC INTERSTITIAL LUNGS.
[2019-04-06 08:55] LABS: HEMATOCRIT 23.6 % (37.0-47.0)
[2019-04-06 16:46] LABS: HEMATOCRIT 20.8 % (37.0-47.0)
--- NOTE | 2019-04-06 17:53 | NUR ---
ASSUMED CARE OF PT AT SHIFT CHANGE. ASSESSMENTS CHARTED. C/O BACK PAIN TREATED WITH PO MEDS WITH PARTIAL RELIEF. PT DID NOT WORK WITH PT/OT D/T ACTIVE BLEED. PT HAD COLONOSCOPY WITH NO SUCCESS OF REACHING BLEED. PLAN TO CONSULT IR IN MORNING. MIDLINE HAS BEEN ORDERED FOR IV ABX AND TRANSFUSION. WAITING INSERTION. WILL CONTINUE TO MONITOR AND FOLLOW POC.
--- NOTE | 2019-04-06 20:51 | NUR ---
VAT CONSULTED FOR A LINE FOR VANCO, FLAGYL, ZOSYN AND PRBC. A ML IS NOT APPROPRIATE FOR THESE MEDS AND PT CONSENTED TO A PICC. 4FRDBLPICC PLACED IN LUABRACHIAL. TIP CONFIRMED IN CAJ AND OK FOR USE. PLEASE SEE INSERTION NOTE FOR DETAILS
[2019-04-07 03:47] VITALS: BP 99/55
--- NOTE | 2019-04-07 05:41 | P ---
[facility] [place] [address] PROCEDURE REPORT Name: NADINE ARROYO Room #: 212-P ADM IN M.R.#: [id number] Admission: 04/04/19 Attend Phys: Deshawn Whitlock MD Discharge: Date of : 35 Report #: [id number] THIS REPORT FOR: //name// CC: Deshawn Whitlock MD DATE OF SERVICE: 04/06/2019 PROCEDURE: Diagnostic flexible sigmoidoscopy. She is a patient of Dr. Deshawn Whitlock. INDICATION FOR PROCEDURE: This patient has been bleeding per rectum. She has a positive nuclear medicine GI bleeding scan at the site of her cecum. 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 I would like to be able to reach this area to cauterize these AVMs versus find other etiology of her bleeding at this level. 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 We are going to try again today to pass the gastrostomy scope through it and see if we can get to the cecum; I was not able to get to the cecum with the gastrostomy scope previously either, but we will attempt this so as to avoid more invasive or dangerous procedures if possible. Informed consent for this procedure was obtained prior to the administration of any medication. The risks of the procedure include but are not limited to the following; bleeding, perforation, infection, complications of sedation and the possibility I could miss something. The patient has indicated her consent to proceed by signing. DESCRIPTION OF THE PROCEDURE: With the benefit of deep sedation by Anesthesia and the patient in the left lateral decubitus position, a digital rectal exam was performed and no abnormalities were palpable. Then, the Olympus gastroscopy scope was introduced through the anal sphincter and advanced to approximately 25 to 30 cm. There were several uncomplicated diverticula in this area. There was 1 diverticulum that actually opened up and started draining purulent material that was yellowish in color, and I suspect that she has an acute diverticulitis. I then was able to pass the scope through the stricture at 25 cm and it appears to be a very redundant fixed stricture, but it looks benign, and I could advance the scope up into possibly the proximal transverse colon, but was unable to go beyond the hepatic flexure or into the ascending colon or cecum despite multiple maneuvers and attempts to make this possible. Therefore, the gastroscope was removed. Then, the Olympus colonoscope was introduced through the anal sphincter and advanced to the 25 cm stricture. I was unable to advance the colonoscope through this narrowed area. The scope just could not make the curve [address] [id number] PROCEDURE REPORT Name: CHAVO ARROYOR Room #: 212-P [facility] IN M.R.#: [id number] Admission: 04/04/19 Attend Phys: Deshawn Whitlock MD Discharge: Date of : 35 Report #: [id number] in order to obtain access to the rest of the colon, and despite multiple maneuvers I was unable to get the scope through either. Therefore, the procedure was terminated. The scope was withdrawn. No other abnormalities other than the sigmoid diverticulosis and the obstruction were noted. The patient went to the recovery area in stable condition. She tolerated the procedure well. IMPRESSION: 1. Acute diverticulitis of the sigmoid colon and multiple uncomplicated diverticula were also noted. 2. Narrowed, redundant, fixed obstructed colon in the sigmoid at approximately 25 cm. RECOMMENDATIONS: At this point, the patient did have blood in her colon during this flexible sigmoidoscopy with both the scopes, and it extends up into the transverse colon as well as far as I could advance the scope. It seems to be more pronounced the farther proximal I went with the scope. Because she has ongoing GI blood loss, we will ask for a stat H and H that should be drawn now and we will transfuse her as necessary. I think the next best test to try to proceed to diagnosis and treatment of this lesion in the cecum is to attempt Interventional Radiology with possible coiling of this lesion. Lastly, a surgical intervention could be attempted. The patient has numerous comorbidities that may make surgery a very dangerous procedure for her. I discussed this with the patient and with her son post-procedure. Initially, I had intended to start her on Cipro and Flagyl, but THE PATIENT IS ALLERGIC TO LEVAQUIN, so we will start her on Zosyn instead of the Cipro and Flagyl, and add vancomycin for the Staph positive blood cultures that are noted. The Zosyn should cover her urinary tract infection as well. I have gone to Radiology to try to locate the interventional radiologist, and they have all left at this time. So, I have put in an order for IR consult and possible mesenteric angiogram with coil. Thank you very much once again for allowing me to participate in her care, Dr. Whitlock. <ELECTRONICALLY SIGNED> By: Dona De La Cruz DO 04/07/19 0541 [id number] Dona De La Cruz DO /nt
--- NOTE | 2019-04-07 05:54 | NUR ---
ASSESSMENT DOCUMENTED.PT BEEN RESTING IN NO ACUTE DISTRESS.A/OX4.VSS.PT AFEBRILE.BLOOD TANSFUSION OF I UNIT OF PRBCS WAS TRANSFUSED,TOLERATED W/O ADVERSE EFFECTS.ONE EPISODE OF PASSING BLOODY STOOL THIS SHIFT.UP WITH ASSISTS TO BSC.ABTS PER ORDERS.ON CLEAR LIQUID DIET.POC IS TO SEE IR TODAY FOR POSSIBLE MESENTRIC ANGIORAM WITH COILING.WILL CONT TO MONITOR PER POC.
[2019-04-07 08:00] VITALS: BP 103/60
[2019-04-07 11:03] LABS: HEMATOCRIT 23.8 % (37.0-47.0); HEMOGLOBIN 8.1 gm/dL (12.0-15.0); MCH 28.5 pg (26.0-34.0); MCHC 33.9 g/dL (28.0-37.0); MCV 84.2 fL (80.0-100.0); RBC 2.83 mil/uL (4.20-5.00); RDW 15.6 % (10.5-14.5); WBC 3.7 thou/uL (4.0-11.0)
[2019-04-07 13:00] VITALS: BP 104/58
[2019-04-07 16:00] VITALS: BP 91/47
--- NOTE | 2019-04-07 17:31 | NUR ---
ASSESSMENT CHARTED. PT ALERT AND ORIENTED. VSS. UP IN THE CHAIR THIS SHIFT. PARTICIPATED IN PT/OT. CRITICAL LAB RESULTS CALLED IN TO DR CONCEPCION. IV ABX GIVEN ORDERED. NO CONCERNS AT THIS TIME. WILL CONTINUE TO MONITOR.
[2019-04-07 18:29] LABS: HEMATOCRIT 26.7 % (37.0-47.0)
[2019-04-07 20:06] VITALS: BP 107/55
[2019-04-08 00:08] VITALS: BP 114/64
[2019-04-08 03:39] VITALS: BP 120/68
--- NOTE | 2019-04-08 05:40 | NUR ---
ASSUMED PT CARE AT 1900. PT A&0X4. MINIMAL BLEEDING NOTED WITH BM, BLEEDING SIGNIFICANTLY IMPROVED. COMPLAINED OF BACK PAIN; THIS WAS MANAGED WITH TYLENOL, L SIDED WEAKNESS NOTED, WELL SOME EDEMA IN SUSHANT LEGS, PT IS STABLE. WILL CONTINUE TO MONITOR PER POC.
[2019-04-08 10:57] LABS: WBC 4.2 thou/uL (4.0-11.0)
[2019-04-08 10:58] LABS: HEMATOCRIT 26.4 % (37.0-47.0); HEMOGLOBIN 8.9 gm/dL (12.0-15.0); MCH 28.4 pg (26.0-34.0); MCHC 33.7 g/dL (28.0-37.0); MCV 84.2 fL (80.0-100.0); RBC 3.13 mil/uL (4.20-5.00); RDW 15.7 % (10.5-14.5)
[2019-04-08 12:18] VITALS: BP 121/72
--- NOTE | 2019-04-08 18:17 | NUR ---
PT ALERT AND ORIENTED. VSS. UP IN THE CHAIR THIS SHIFT. CRITICAL LAB RESULT CALLED IN TO JAVON MOSQUEDA. NO NEW ORDERS. SEEN BY DR. KAPOOR. WILL CONTINUE TO MONITOR.
[2019-04-08 20:04] VITALS: BP 122/52
[2019-04-09 03:43] VITALS: BP 110/52
--- NOTE | 2019-04-09 06:29 | NUR ---
ASSUMED PT CARE AT 1900, VSS. EXCEPT TEMP WHICH WAS 99.7 AT THE START OF THE SHIFT BUT TRENDED DOWN TO 98.2 THIS AM. PT IS STABLE, LESS COMPLAINTS OF PAIN THIS SHIFT. PT APPEARED WEAKER THIS SHIFT WHEN GETTING UP TO USE THE BEDSIDE COMMODE, IT TOOK HER LONGER TIME THAN IT DID THE NIGHT BEFORE. NO BLEEDING IN STOOL. PT HAD AN 8 BEAT RUN OF VTACH THIS AROUND 2AM TODAY. PT WAS ST WITH ACTIVITY WELL THIS SHIFT; HIGHEST WAS 150. PT IS HOWEVER STABLE. WILL CONTINUE TO MONITOR PER POC
[2019-04-09 07:00] VITALS: BP 108/49
[2019-04-09 11:22] LABS: HEMOGLOBIN 7.7 gm/dL (12.0-15.0)
[2019-04-09 11:25] LABS: HEMATOCRIT 22.9 % (37.0-47.0); MCH 28.2 pg (26.0-34.0); MCHC 33.4 g/dL (28.0-37.0); MCV 84.3 fL (80.0-100.0); RBC 2.72 mil/uL (4.20-5.00); WBC 6.2 thou/uL (4.0-11.0)
[2019-04-09 11:57] LABS: PROTIME 10.6 Seconds (9.3-11.4)
[2019-04-09 12:01] LABS: ALBUMIN 1.9 g/dL (3.4-5.0); CALCIUM 7.6 mg/dL (8.5-10.1); CREATININE 1.2 mg/dL (0.6-1.0); TOTAL BILIRUBIN 0.4 mg/dL (<0.1-1.0); TOTAL PROTEIN 5.6 g/dL (6.4-8.2)
[2019-04-09 12:02] LABS: POTASSIUM 2.9 mmol/L (3.5-5.1)
[2019-04-09 15:30] VITALS: BP 124/65
[2019-04-09 16:09] VITALS: BP 103/48; BP 99/52
--- NOTE | 2019-04-09 19:11 | NUR ---
ASSSESSMENT CHARTED. PT ALERT AND ORIENTED. VSS. CRITICAL LAB CALLED IN TO DR. KAPOOR. ORDERS RECEIVED. PT RECEIVED 1 UNIT OF BLOOD. NO CONCERNS AT THIS TIME. WILL CONTINUE TO MONITOR.
[2019-04-09 20:30] VITALS: BP 101/48
[2019-04-10 04:46] VITALS: BP 98/54
--- NOTE | 2019-04-10 06:00 | NUR ---
PT AWAKE AND ALERT. UP TO THE BEDSIDE COMMODE SEVERAL TIMES LAST NIGHT MARROON TO RED BLOODY STOOLS MIXED WITH URINE AND CLOTS PT REFUSED HER LASIX IV LAST EVENING AFTER PACKED CELLES INFUSED. STATED SHE DID NOT WANT TO HAVE TO GET UP SO MANY TIMES AND VOID. LUNGS DIMINISHED K 3.1 LAST EVENING 20 MEQ KCL IVPB GIVEN PER ORDER DR KAPOOR REMAINS IN SINUS RHYTHM. WILL CONT TO MONITOR.
[2019-04-10 06:27] LABS: HEMATOCRIT 22.1 % (37.0-47.0); HEMOGLOBIN 7.4 gm/dL (12.0-15.0); MCH 28.4 pg (26.0-34.0); MCHC 33.6 g/dL (28.0-37.0); MCV 84.5 fL (80.0-100.0); RBC 2.62 mil/uL (4.20-5.00); RDW 15.5 % (10.5-14.5); WBC 6.6 thou/uL (4.0-11.0)
[2019-04-10 06:29] LABS: CALCIUM 7.7 mg/dL (8.5-10.1); POTASSIUM 3.1 mmol/L (3.5-5.1)
[2019-04-10 07:00] VITALS: BP 94/57
[2019-04-10 15:54] LABS: HEMOGLOBIN 6.5 gm/dL (12.0-15.0)
[2019-04-10 15:57] LABS: HEMATOCRIT 19.4 % (37.0-47.0)
[2019-04-10 16:40] VITALS: BP 95/40
[2019-04-10 16:56] VITALS: BP 93/40; BP 93/50
--- NOTE | 2019-04-10 18:19 | NUR ---
ASSESSMENT CHARTED. PT ALERT AND ORIENTED. RECEIVED PRN PAIN MED FOR GENERALISED PAIN WITH PARTIAL RELIEF. CRITICAL LAB RESULT CALLED IN TO DR. KAPOOR. ORDERS RECEIVED TO TRANSFUSE 1 UNIT OF BLOOD. NO CONSRNS AT THIS TIME. WILL CONTINUE TO MONITOR.
[2019-04-10 20:08] VITALS: BP 93/50
[2019-04-10 22:01] VITALS: BP 101/51; BP 90/50; BP 95/64
[2019-04-11] VITALS (7 sets, daily range): BP systolic 89–118; BP diastolic 46–59
--- NOTE | 2019-04-11 06:53 | NUR ---
ASSUMED PT CARE AT 1900. VSS. PT A&0X4. ACTIVE LOWER GI BLEED NOTED, PT GOT 2 UNITS OF BLOOD TRANSFUSED. CT DONE YESTERDAY, DR EWING NOTIFIED OF RESULTS, HE CAME IN AND PUT 5 COILS IN. R GROIN ACCESS SITE, CDI, PT IS STABLE, STEEL BLEEDING CRISTIAN RED, BUT THIS IS EXPECTED AND THIS WILL GET BETTER THE DAY PROGRESSESS.
[2019-04-11 06:54] LABS: HEMOGLOBIN 7.1 gm/dL (12.0-15.0)
[2019-04-11 06:56] LABS: HEMATOCRIT 20.8 % (37.0-47.0); MCH 29.9 pg (26.0-34.0); MCHC 34.3 g/dL (28.0-37.0); MCV 87.4 fL (80.0-100.0); RBC 2.38 mil/uL (4.20-5.00); RDW 15.1 % (10.5-14.5); WBC 9.6 thou/uL (4.0-11.0)
[2019-04-11 07:10] LABS: CALCIUM 7.4 mg/dL (8.5-10.1); POTASSIUM 3.4 mmol/L (3.5-5.1)
[2019-04-11 11:55] LABS: MAGNESIUM 1.7 mg/dL (1.8-2.4); POTASSIUM 3.3 mmol/L (3.5-5.1)
--- NOTE | 2019-04-11 14:54 | NUR ---
Nutrition: pt seen for LOS. Admit with lower GIB, S/P transfusions. 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 S/P embolization. Pt reports fair appetite and thinks she eats about 1/3 of meals. PO intake per records is documented as 65-100% however it appears son has been eating some of pt meals. Discussed use of ensure and pt denies desire. Son was encouraging pt to try and pt continued to refuse. Agrees to try ensure pudding with beneprotein powder BID. Discussed mixing and trying to eat protein foods first on trays. Pt asking for additional fruit which RD obtain for pt. No recent weight changes. Per hx, stable past 6 months. Possible discharge to rehab facility. With interventions in place, consider low risk.
[2019-04-11 15:41] LABS: HEMATOCRIT 23.4 % (37.0-47.0); HEMOGLOBIN 7.7 gm/dL (12.0-15.0)
--- NOTE | 2019-04-11 16:17 | 2DMMODE ---
[facility] [place] [address] [place] [address] 2 D/M-MODE ECHOCARDIOGRAM Name: NADINE ARROYO Room #: 212-P [facility] IN M.R.#: [id number] Admission: 04/04/19 Attend Phys: Deshawn Whitlock, Discharge: Date of : 35 Report #: [id number] THIS REPORT FOR: //name// APPROVED REPORT Study performed: 04/11/2019 13:12:49 EXAM: Comprehensive 2D, Doppler, and color-flow Echocardiogram Patient Location: Bedside Room #: [facility] [place] Status: routine BSA: 1.68 HR: 104 bpm BP: 97/48 mmHg Rhythm: Tachycardia Indications V-tach. Hx: Aortic stenosis, CVA. 2D Dimensions RVDd: 30.97 mm IVSd: 13.31 (7-11mm) LVOT Diam: 18.18 (18-24mm) LVDd: 40.24 mm PWd: 12.87 (7-11mm) LVDs: 23.98 (25-40mm) Aortic Root: 31.27 mm Volumes Left Atrial Volume (Systole) Single Plane 4CH: 70.33 mL Single Plane 2CH: 48.42 mL LA ESV Index: 36.00 mL/m2 Aortic Valve AoV Peak Augusto.: 5.49 m/s AO Peak Gr.: 120.67 mmHg LVOT Max P.90 mmHg AO Mean Gr.: 78.52 mmHg AO V2 Mean: 4.30 m/s LVOT Max V: 1.31 m/s AO V2 VTI: 107.19 cm ADE Vmax: 0.62 cm2 Mitral Valve E/A Ratio: 0.8 MV Decel. Time: 210.06 ms MV E Max Augusto.: 1.18 m/s [facility] [place] [address] [place] [address] 2 D/M-MODE ECHOCARDIOGRAM Name: RELLVICENTENADINE Room #: [address] [place] [address] IN ..#: [id number] Admission: 04/04/19 Attend Phys: Deshawn Whitlock, Discharge: Date of : 35 Report #: [id number] MV A Augusto.: 1.56 m/s MV PHT: 60.92 ms IVRT: 36.91 ms Pulmonary Vein P Vein S: 0.41 m/s P Vein D: 0.40 m/s P Vein S/D Ratio: 1.02 Tricuspid Valve TR Peak Augusto.: 2.82 m/s RAP Estimate: 5.00 mmHg TR Peak Gr.: 32.00 mmHg PA Pressure: 37.00 mmHg Left Ventricle The left ventricle is normal size. There is normal LV segmental wall motion. Mild concentric left ventricular hypertrophy. Left ventricular systolic function is normal. LVEF is 65-70%. Mild diastolic dysfunction is present (impaired relaxation pattern). Right Ventricle The right ventricle is normal size. The right ventricular systolic function is normal. Atria Left atrium is mildly dilated. The right atrium size is normal. Aortic Valve The aortic valve is not well visualized. Leaflets are heavily calcified. Mild aortic regurgitation. There is severe valvular aortic stenosis. Calculated aortic valve area is 0.6 cm2 with maximum pressure gradient of 120 mmHg and mean pressure gradient of 79 mmHg. Mitral Valve Mitral valve leaflets are thickened. Moderate mitral annular calcification. Mild mitral regurgitation. Tricuspid Valve The tricuspid valve is normal in structure. Trace tricuspid regurgitation. Estimated PAP is 35-40mmHg. Pulmonic Valve Pulmonic valve is not well visualized. [facility] [address] [place] [address] 2 D/M-MODE ECHOCARDIOGRAM Name: NADINE ARROYO Room #: 212-P [facility] IN M.R.#: [id number] Admission: 04/04/19 Attend Phys: Deshawn Whitlock, Discharge: Date of : 35 Report #: [id number] Great Vessels The aortic root is normal in size. Ascending aorta is not well visualized. IVC is normal in size and collapses >50% with inspiration. Pericardium There is no pericardial effusion. <Conclusion> The left ventricle is normal size. LVEF is 65-70%. Left atrium is mildly dilated. The aortic valve is not well visualized. Leaflets are heavily calcified. Mild aortic regurgitation. There is severe valvular aortic stenosis. Calculated aortic valve area is 0.6 cm2 with maximum pressure gradient of 120 mmHg and mean pressure gradient of 79 mmHg. Mitral valve leaflets are thickened. Moderate mitral annular calcification. Mild mitral regurgitation. The tricuspid valve is normal in structure. Trace tricuspid regurgitation. Estimated PAP is 35-40mmHg. The tricuspid valve is normal in structure. Trace tricuspid regurgitation. Estimated PAP is 35-40mmHg. Pulmonic valve is not well visualized. There is no pericardial effusion. <ELECTRONICALLY SIGNED> By: Carlton Garcia MD 04/11/19 [phone] Carlton Garcia MD /INF
--- NOTE | 2019-04-11 17:41 | NUR ---
[facility] and accepting clinically. They will submit for auth for patient.
--- NOTE | 2019-04-11 20:11 | NUR ---
ASSUMMED PT CARE AT APPROXIMATELY 0700. PT A&O X4. ASSESSMENT CHARTED. FALL PRECAUTIONS IN PLACE. PT DENIES HAVING CHEST PAIN. PT DENIES HAVING SOB. PT STATED SHE HAD CHRONIC BACK PAIN. I OFFERED HER ANALGESICS. PT DENIED WANTING ANALGESICS. PT AND PT'S FAMILY EDUCATED ABOUT POC. PT AND PT'S FAMILY STATED UNDERSTANDING AND DENIED HAVING FURTHER QUESTIONS. PT HAD RUN OF VTA. NOTIFIED. ADDED NEW ORDERS. IMPLEMENTED ORDERS. STATED TO CONTINUE TO MONITOR. VITAL SIGNS STABLE. RHYTHM STABLE. NOTIFIED MEDICAL SCIENTIST THAT PT WAS CONTINUING TO HAVE GI BLEEDING. MEDICAL SCIENTIST ORDERED 1 UNIT OF BLOOD. 1 UNIT OF BLOOD IMPLEMENTED AND COMPLETED. PT STABLE THROUGHOUT BLOOD TRANSFUSION. PT COMFORTABLE IN BED. Q2 TURNS. PT DENIES HAVING FURTHER CONCERNS.
[2019-04-11 21:13] LABS: HEMATOCRIT 19.3 % (37.0-47.0)
[2019-04-11 21:14] LABS: HEMOGLOBIN 6.4 gm/dL (12.0-15.0)
[2019-04-12] VITALS (40 sets, daily range): BP systolic 93–127; BP diastolic 31–59
--- NOTE | 2019-04-12 05:19 | NUR ---
PT CURRENTLY RESTING IN BED. REMAINS ON RA. PT HAD 5 EPISODE OF BLEEDING WITH CLOTS FROM RECTUM DURING SHIFT AND COMPLETED ONE UNIT OF PRBCs FOR MY SHIFT. PENDING AM LABS TO REVIEW H&H
[2019-04-12 05:46] LABS: CALCIUM 6.9 mg/dL (8.5-10.1); CREATININE 0.9 mg/dL (0.6-1.0); POTASSIUM 3.9 mmol/L (3.5-5.1)
[2019-04-12 05:54] LABS: MCH 29.6 pg (26.0-34.0); MCHC 33.9 g/dL (28.0-37.0); MCV 87.2 fL (80.0-100.0); RBC 1.96 mil/uL (4.20-5.00); RDW 14.5 % (10.5-14.5)
[2019-04-12 05:57] LABS: HEMOGLOBIN 5.8 gm/dL (12.0-15.0)
[2019-04-12 05:58] LABS: HEMATOCRIT 17.1 % (37.0-47.0)
--- NOTE | 2019-04-12 08:38 | EKG ---
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: PHILIPPE : [id number] Requested By: Arjun Novak Order Number: [id number] MD: Arjun Novak Measurements Intervals [place] Rate: 99 P: -7 NH: 139 QRS: 38 QRSD: 68 T: QT: 335 QTc: 430 Interpretive Statements Sinus rhythm Nonspecific ST and T wave abnormality Compared to ECG 04/03/2019 22:27:59 Nonspecific change in the ST and T-wave segments Ventricular premature complex(es) no longer present Electronically Signed On 04-12-2019 8:38:08 PEACE OFFICER by Arjun Novak [email or web address] <ELECTRONICALLY SIGNED> By: Arjun Novak MD, FACC 04/12/19 0838 9 9 Arjun Novak MD, [facility] /EPI
--- NOTE | 2019-04-12 08:46 | NUR ---
PATIENT SEEN FOR REHAB CONSULT BY DR. KRUGER ON 04/11/19. PATIENT IS A CANDIDATE FOR ACUTE REHAB. OCCUPATIONAL THEREAPY NOTES NEEDED PRIOR TO SENDING FOR AUTHORIZATION. OT TO SEE PATIENT THIS AM AND DOCUMENT AND THEN CLINICAL INFORMATION WILL BE SENT TO [facility]. THANK YOU FOR THIS REFERRAL.
--- NOTE | 2019-04-12 09:40 | NUR ---
PT TRANSFERED TO ICU STATUS AND IN ROOM 240 VIA BED. PLAN OF CARE DISCUSSED WITH PT. LUNGS ARE CLEAR. ON ROOM AIR. RECEIVING 1 UNIT OF BLOOD CURRENTLY. ALERT AND ORIENTED X4. PALE. WILL BE GOING TO IR THIS AFTERNOON FOR PROCEDURE. AND ANOTHER OF UNIT OF BLOOD TO BE GIVEN AFTER INFUSION OF THIS ONE CURRENTLY. PT IS PALE UPON ASSESSMENT. SCDS ON BILATERAL. WILL CONTINUE TO ASSESS AND MONIOTR PER WILL. WILL MONITOR RECTAL BLEEDING AT THIS TIME.
--- NOTE | 2019-04-12 10:29 | NUR ---
Pt TRANSFERRED TO ICU. WILL PLACE ON HOLD AND AWAIT NEW ORDERS TO RESUME
--- NOTE | 2019-04-12 11:45 | NUR ---
ASSUMMED PT CARE AT APPROXIMATELY 0700. PT A&O X4. ASSESSMENT CHARTED. FALL PRECAUTIONS IN PLACE. PT DENIED HAVING CHEST PAIN. PT DENIED HAVING SOB. PT DENIED HAVING ACUTE PAIN. PT AND PT'S FAMILY EDUCATED ABOUT POC. PT AND PT'S FAMILY STATED UNDERSTANDING AND DENIED HAVING FURTHER QUESTIONS. 'Xiomara NOTIFIED OF CONTINUOUS GI BLEEDING. 'Xiomara STATED TO CONTINUE TO MONITOR AND TRANSFTER PT TO ICU. STARTED ONE UNIT OF BLOOD. PT STABLE WHILE BLOOD TRANSFUSING. VITAL SIGNS STABLE. CONSENT SIGNED FOR SCHEDULED PROCEDURE TODAY. PT'S BELONGINGS, CHART, AND PHONE TRANSFERRED C PT TO ICU. PT COMFORTABLE IN BED. PT DENIES HAVING FURTHER CONCERNS. PT TRANSFERRED TO ICU AT APPROXIMATELY 0930.
--- NOTE | 2019-04-12 11:58 | NUR ---
PATIENT WILL BE PLACED ON HOLD FOR OT PER PROTOCOL DUE TO TRANSFER TO ICU. WILL AWAIT RESUME OT ORDERS.
[2019-04-12 15:03] LABS: RBC 2.23 mil/uL (4.20-5.00); RDW 14.7 % (10.5-14.5)
[2019-04-12 15:04] LABS: MCH 28.2 pg (26.0-34.0); MCHC 33.1 g/dL (28.0-37.0); MCV 85.1 fL (80.0-100.0); WBC 12.6 thou/uL (4.0-11.0)
[2019-04-12 15:12] LABS: HEMOGLOBIN 6.3 gm/dL (12.0-15.0)
--- NOTE | 2019-04-12 16:02 | NUR ---
PTIS ALERT AND ORIENTED X4.LUNGS ARE CLEAR GI BLEED TAKEN TO IR TODAY. NO BLEEDING NOTED NOW. TRANSFUSION X2 UNITS AND 1 PLATELET. LUNGS ARE CLEAR. ON ROOM AIR. DENIES ANY PAIN NOW. CONTINUES TO PROGRESS TOWARDS GOALS AND TREATMENTS AT THIS TIME PPER NURSING
[2019-04-12 17:21] LABS: FIBRINOGEN 250.2 mg/dL (210-360); PROTIME 10.8 Seconds (9.3-11.4)
[2019-04-12 17:39] LABS: D-DIMER 2.59 ug/mLFEU (0.19-0.50)
[2019-04-12 19:43] LABS: HEMATOCRIT 21.7 % (37.0-47.0); HEMOGLOBIN 7.2 gm/dL (12.0-15.0); MCH 27.1 pg (26.0-34.0); MCHC 33.3 g/dL (28.0-37.0); MCV 81.3 fL (80.0-100.0); RBC 2.67 mil/uL (4.20-5.00); RDW 16.4 % (10.5-14.5); WBC 12.6 thou/uL (4.0-11.0)
[2019-04-13] VITALS (24 sets, daily range): BP systolic 104–125; BP diastolic 41–66
--- NOTE | 2019-04-13 04:49 | NUR ---
NO OVERNIGHT EVENTS. VSS. NO NEED FOR BLOOD TRANSFUSION OVERNIGHT. STILL HAVING MAROON COLORED STOOLS, DECREASING IN SIZE. USES THE BED SARMIENTO APPROPRIETELY. ASSESSMENTS AND VITAL SIGNS CHARTED. CONTINUE TO FOLLOW POC. WILL CONTINUE TO MONITOR.
[2019-04-13 10:51] LABS: ALBUMIN 1.6 g/dL (3.4-5.0); AMYLASE 55 U/L (25-115); DIRECT BILIRUBIN < 0.1 mg/dL (<0.1-0.2); LIPASE 377 U/L (73-393); SGOT 25 U/L (15-37); SGPT 19 U/L (30-65); TOTAL BILIRUBIN 0.4 mg/dL (<0.1-1.0); TOTAL PROTEIN 4.8 g/dL (6.4-8.2)
--- NOTE | 2019-04-13 17:54 | NUR ---
PT RECEIVED ONE UNIT OF BLOOD TODAY. PT REFUSED ORAL MEDS DUE TO SORE MOUTH. MD NOTIFIED AND STARTD ON PO NYSTATIN. Q4 H/H TO CONTINUE. PT SLOWLY PROGRESSING TOWARDS PLAN OF CARE, WITH ONLY ONE MAROON COLORED STOOL.
[2019-04-13 22:00] LABS: HEMATOCRIT 23.9 % (37.0-47.0)
[2019-04-14] VITALS (7 sets, daily range): BP systolic 102–137; BP diastolic 43–63
[2019-04-14 07:38] LABS: HEMATOCRIT 22.7 % (37.0-47.0); HEMOGLOBIN 7.6 gm/dL (12.0-15.0)
--- NOTE | 2019-04-14 14:18 | NUR ---
ASSUMED CARE AT 0700. NO SIGNS OR SYMPTOMS OF BLEEDING. PT NEEDS LOTS OF MOTIVATION TO MOVE AROUND IN BED AND DO THINGS FOR HERSELF. PT'S DIET ADVANCED TO REGULAR PER DOCTOR. POOR APPETITE. REPORT GIVEN TO MALIK BARTHOLOMEW.
--- NOTE | 2019-04-14 16:30 | NUR ---
[facility]ED REF[facility] TO [facility] IN ADMISSIONS RECEIVED AND WILL REVIEW. WE REQUESTED BEDSIDE EVALUATION. SHE WILL SEE PATIENT TOMORROW, 04/15/19. DP TO FOLLOW.
--- NOTE | 2019-04-14 16:43 | NUR ---
Electrical Prospecting Operator visited with the pt at bedside. She was reevaluated by therapy today. Rehab recommended at dc.The pt is agreeable but does not feel she can tolerate 5N acute rehab. Snf options reveiwed and she is interested in [facility] so her pcp can follow there. Dc data recovery planner faxed the referral. They will likely have a bed early next week. Dc time frame is uncertain. Will need [employer] auth.
[2019-04-14 16:51] LABS: HEMATOCRIT 23.8 % (37.0-47.0)
--- NOTE | 2019-04-14 17:18 | NUR ---
PATIENT TRANSFERED FROM ICU TO CCU ROOM 214. SHE DENIED NEEDS THIS AFTERNOON. SHE WAS ABLE TO WORK WITH PT AND OT. AFTERWARDS SHE EXPRESSED SHE WAS TIRED. SHE EXPRESSED SHE WAS ABLE TO BRUSH HER TEETH. ALL BELONGINGS WENT WITH HER TO CCU, EXCEPT AN IPHONE RETAIL SALES VITAMIN CONSULTANT. NURSE CALLED HER SON MIGUEL A AND UPDATED HIM ON THE NEW ROOM NUMBER. NURSE ASKED MIGUEL A ABOUT THE RETAIL SALES VITAMIN CONSULTANT. HE EXPRESSED HER SON BORROWED IT AND THAT THEY WILL BRING IT TO HER.
--- NOTE | 2019-04-14 18:18 | NUR ---
[facility] VSS. DENIED HAVING PAIN OR DISCOMFORT. NO CONCERNS AT THIS TIME. WILL CONTINUE TO MONITOR.
[2019-04-15 00:53] LABS: HEMATOCRIT 24.4 % (37.0-47.0); HEMOGLOBIN 8.1 gm/dL (12.0-15.0)
[2019-04-15 03:24] VITALS: BP 109/54
[2019-04-15 07:00] VITALS: BP 101/55
--- NOTE | 2019-04-15 12:10 | NUR ---
[facility] has called back and they will not have any bed availability Thursday and questionable for Thursday or Thursday. Alternative SNF options and [employer] snf list reviewed with the pt and her son Jesse/ [facility]. [facility]. Referral to be faxed to them for dc Thursday. Sexual Health Physician spoke with Xuan in admissions and they will have a bed available. They are in network with her [employer] and can submit for ins auth. Dr. Whitlock, nursing, the pt and the family updated. Pt indicated it is okay to coordinate with her [facility] and to add them to the spokespersons list.
[2019-04-15 13:51] LABS: HEMATOCRIT 27.1 % (37.0-47.0)
[2019-04-15 14:03] LABS: CALCIUM 8.1 mg/dL (8.5-10.1); CREATININE 0.9 mg/dL (0.6-1.0); POTASSIUM 3.6 mmol/L (3.5-5.1)
--- NOTE | 2019-04-15 14:09 | NUR ---
FAXED REFERRAL TO [facility] SPOKE TO ANNA IN ADMISSIONS. SHE RECEIVED REFERRAL AND WILL SUBMIT FOR AUTH. DP TO FOLLOW.
--- NOTE | 2019-04-15 16:18 | NUR ---
ASSESSMENT CHARTED. PT ALERT AND ORIENTED. VSS. UP IN THE CHAIR THIS SHIFT. PARTICIPATED IN PT AND OT. SEEN BY DR. KAPOOR. ORDERS NOTED. WILL CONTINUE TO MONITOR.
[2019-04-15 17:30] VITALS: BP 102/54
[2019-04-15 19:52] VITALS: BP 103/57
[2019-04-15 22:02] VITALS: BP 103/57
[2019-04-16 03:10] VITALS: BP 106/58
[2019-04-16 05:27] LABS: HEMATOCRIT 22.5 % (37.0-47.0); HEMOGLOBIN 7.4 gm/dL (12.0-15.0)
--- NOTE | 2019-04-16 06:46 | NUR ---
REPORT TAKEN FROM MALIK WHITE AT 2300. PT ALERT AND ORIENTED. NO COMPLAIN OF PAIN THROUGHOUT THE NIGHT. NO BLOODY BM THROUGHOUT THE NIGHT. PT HH TRENDING DOWN THIS AM. CHART CHECK. PT SLOWLY PROGRESSING TOWARDS GOALS.
[2019-04-16 07:30] VITALS: BP 101/57
--- NOTE | 2019-04-16 11:28 | NUR ---
VAT ROUNDING AND LUADBLPICC INTACT, MILD EDEMA THROUGHOUT LT ARM, ADVISED DR FLORES, AN US WILL BE ORDERED TO R/O DVT. POSS DC OF PICC
[2019-04-16 12:46] LABS: HEMATOCRIT 22.4 % (37.0-47.0); HEMOGLOBIN 7.4 gm/dL (12.0-15.0); MCH 28.6 pg (26.0-34.0); MCV 86.6 fL (80.0-100.0); RBC 2.59 mil/uL (4.20-5.00); RDW 17.8 % (10.5-14.5); WBC 5.1 thou/uL (4.0-11.0)
[2019-04-16 12:58] LABS: CALCIUM 7.7 mg/dL (8.5-10.1); CREATININE 0.9 mg/dL (0.6-1.0); MAGNESIUM 1.9 mg/dL (1.8-2.4); POTASSIUM 3.7 mmol/L (3.5-5.1)
[2019-04-16 16:30] VITALS: BP 107/52
--- NOTE | 2019-04-16 18:17 | NUR ---
PATIENT STILL FELT VERY WEAK TODAY AND COMPLAINED OF MOUTH PAIN. NURSE OBTAINED AN ORDER FOR MAGIC MOUTHWASH. SHE WAS GIVEN THE LIDOCAIN AND TYLENOL TO HELP CONTROL HER MOUTH PAIN. PATIENT SAT IN [facility] CHAIR FOR A WHILE TODAY AND WAS ABLE TO VOID ON HER OWN. NO MORE BLOODY STOOLS AND HGB REMAINED STABLE AT 7.4. LEFT ARM POSITIVE FOR SUPERFICIAL BLOOD CLOT. PHYSICIAN NOTIFIED AND SAID IT IS OK TO USE FOR NOW BUT NEED TO START PERIPHERAL AND PULL PICC WHEN ABLE. PATIENT IS RESTING IN BED NOW.
[2019-04-16 20:00] VITALS: BP 106/41
[2019-04-17 04:43] LABS: HEMOGLOBIN 7.6 gm/dL (12.0-15.0); MCH 28.4 pg (26.0-34.0); WBC 4.3 thou/uL (4.0-11.0)
[2019-04-17 04:44] LABS: HEMATOCRIT 23.2 % (37.0-47.0); MCHC 32.7 g/dL (28.0-37.0); MCV 86.9 fL (80.0-100.0); RBC 2.67 mil/uL (4.20-5.00); RDW 17.7 % (10.5-14.5)
[2019-04-17 04:45] VITALS: BP 120/58
[2019-04-17 04:55] LABS: CREATININE 0.8 mg/dL (0.6-1.0); MAGNESIUM 1.9 mg/dL (1.8-2.4); POTASSIUM 3.7 mmol/L (3.5-5.1)
--- NOTE | 2019-04-17 05:11 | NUR ---
ASSUMED PT CARE AT 1900, PT A/OX4, VITAL SIGNS STABLE, ASSESSMENT CHARTED. PT COMPLAINED OF MOUTH AND TONGUE PAIN. LIDOCIANE SWISH/SWALLOW MOUTH WASH SEEMED TO HELP. TYLENOL GIVEN WELL. NO BLOODY STOOLS NOTED. PT RESTED WELL THROUGH THE NIGHT. PROGRESSING TOWARD PLAN OF CARE. WILL CONTINUE TO MONITOR.
[2019-04-17 08:16] VITALS: BP 133/68
[2019-04-17 12:12] VITALS: BP 118/60
[2019-04-17 12:15] LABS: % SATURATION 11 % (20-39); IRON 15 ug/dL (50-170); TIBC 133 ug/dL (250-450)
[2019-04-17 12:50] LABS: FOLIC ACID 11.1 ng/mL (8.6-58.9)
[2019-04-17 17:25] VITALS: BP 111/69
--- NOTE | 2019-04-17 18:22 | NUR ---
RECEIVED PT'S CARE AROUND 0700; PT. ON BED; AOX4; DURING ASSESSMENT C/O PAIN OVER MOUTH; PRN PAIN MEDICATION GIVEN TOGETHER WITH AM MEDICATIONS; AM MEDICATIONS CHANGE TO LIQUID; PHYSICIAN ROUNDING ON THE MORNING; REQUESTED D/C PICC LINE; PT'S HR ON HEART MONITOR SHOWING ST; HR ON THE 120s WITH AMBULATION; C/O SOB WITH EXERTION; 02 SAT 97%; PHYSICIAN NOTIFIED; ORDERS ON PLACED; PHYSICIAN ROUNDING DURING THE AFTERNOON; AWARE OF CT RESULTS; TROPONIN ELEVATED; PHYSICIAN NOTIFIED; ORDERS RECEIVED; MONITORING; ASSESSMENT CHARGED; FOLLOWING POC; WILL PASS ON REPORT;
[2019-04-17 20:04] VITALS: BP 118/56
[2019-04-18 03:39] VITALS: BP 98/56
--- NOTE | 2019-04-18 04:52 | NUR ---
ASSUMED CARE OF PATIENT AT 1900. INCONTINENT SEVERAL TIMES THROUGH THE NIGHT, ENCOURAGED FREQUENTLY TO GET UP TO COMMODE TO BUILD STRENGTH AND ALSO PREVENT SKIN BREAKDOWN. REQUIRES A LOT OF ASSISTANCE AND ENCOURAGEMENT.
[2019-04-18 06:20] LABS: HEMATOCRIT 22.4 % (37.0-47.0); HEMOGLOBIN 7.4 gm/dL (12.0-15.0)
--- NOTE | 2019-04-18 07:52 | EKG ---
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: Indira MOULTON : 1935 Requested By: Alfredo Jameson Order Number: [id number] MD: Arjun Novak Measurements Intervals [place] Rate: 103 P: 56 [place]: 138 QRS: 30 QRSD: 79 T: 117 QT: 325 QTc: 426 Interpretive Statements Sinus tachycardia Nonspecific T wave abnormality Compared to ECG 04/12/2019 07:20:09 No significant change was found Electronically Signed On 04-18-2019 7:52:37 AIRFRAME TECHNICAL OFFICER by Arjun Novak [email or web address] <ELECTRONICALLY SIGNED> By: Arjun Novak MD, [facility] 04/18/19 0752 1608 1608 Arjun Novak MD, [facility] /EPI
[2019-04-18 08:00] VITALS: BP 119/61
--- NOTE | 2019-04-18 11:26 | NUR ---
Nutrition followup: pt continues on CCU unit, S/P blood transfusions for cecal AVMs, lower GIB. PO intake remains poor/fair as pt struggling with mouth sores due to thrush vs allergic reaction. On lidocaine swish and swallow. PO intake approx. 1/3 of meals. Ensure pudding with beneprotein powder offered BID and pt reports she likes these supplements. Will provide and additional 230 kcals and 20 gm protein daily. pt continues to adamantly refuse ensure enlive drinks. Assisted pt in ordering meals today to maximize calorie/protein intake. Cold foods/soups/softer foods are better tolerated at present. Encouraged ordering meals daily. Plan for pt to D/C to SNF soon.
[2019-04-18 12:26] VITALS: BP 101/58
--- NOTE | 2019-04-18 14:15 | NUR ---
FAXED REFERRAL TO [facility] SPOKE WITH SLOANE IN ADM SHE RECEIVED REFERRAL AND WILL HAVE A BED OPEN TODAY FOR ADMIT.
--- NOTE | 2019-04-18 14:25 | NUR ---
patient with need for post acute care. [facility] first choice but they did not have a bed avail. However bed avail in am. Updated patient and son who are agreeable to [facility]. UR rn notified [facility] to pull auth for [facility].
[2019-04-18 16:00] VITALS: BP 106/54
--- NOTE | 2019-04-18 20:01 | NUR ---
RECEIVED PT'S CARE AROUND 0710; PT. ON BED RESTING WITH EYES CLOSED; EQUAL CHEST RISING NOTICED; DURING ASSESSMENT C/O MOUTH PAIN; PRN PAIN MEDICATION GIVEN WITH AM MEDICATIONS; PHYSICIAN ROUNDING EARLY ON THE MORNING; NOTIFIED ABOUT ELEVATED HR; NO IMPROVED MOUTH PAIN WITH MEDICATION; NO NEW ORDERS NOTIFIED ABOUT PT. COUGHING AFTER TAKING LIQUIDS; NO NEW ORDERS; GI ROUNDING ON PT.; NOTIFIED ABOUT MOUTH PAIN; ST. UNDERSTANDING; ENT CONSULT; PT. EDUCATED ABOUT THE NEED TO GET OUT FROM BED; PT. UP TO CHAIR WITH PT & OT; REMAINED ON CHAIR MOST OF THE DAY; REQUESTED TO BE BACK TO BED AROUND 1600; ENT PHYSICIAN ROUNDING ON PT AROUND 1700; RECOMENDATIONS ON NOTES; DR. KAPOOR NOTIFIED; ORDERS RECEIVED; PT'S TEMPERATURE ON THE 100s; BLANCKETS REMOVED; FAN ON; TERMOSTAT ADJUSTED; TEMPERATURE RE-ASSESSED; 98.2; ASSESSMENT CHARGED; FOLLOWING POC; PASSED ON REPORT;
[2019-04-18 20:15] VITALS: BP 107/46
[2019-04-18 21:38] VITALS: BP 105/67
[2019-04-19 00:05] VITALS: BP 106/64
[2019-04-19 00:06] VITALS: BP 11/50
[2019-04-19 04:45] VITALS: BP 108/56
[2019-04-19 04:55] LABS: HEMATOCRIT 20.9 % (37.0-47.0); HEMOGLOBIN 6.8 gm/dL (12.0-15.0)
--- NOTE | 2019-04-19 06:39 | NUR ---
ASUMED PT CARE AT 1900. VSS. PT A&0X4. WEAK STILL, HOWEVER NO BLEEDING NOTED ALL THROUGH THE NOC. PT IS STABLE, RESTED ALL NOC, NO COMPLAINTS OF PAIN OR DISTRESS, WILL CONTINUE TO MONITOR PER POC. EDEMA STILL PRESENT, WILL CONTINUE TO MONITOR PER POC.
[2019-04-19 08:00] VITALS: BP 129/77
[2019-04-19] MEDS ORDERED: VALTREX 500 MG500 MG PO (09:01)
[2019-04-19] MEDS ORDERED: VOLTAREN GEL 1100 G1 TOP (09:01)
[2019-04-19] MEDS ORDERED: AUGMENTIN400 MG/53 PO (09:01)
--- NOTE | 2019-04-19 10:15 | NUR ---
PT DISCHARGING TODAY TO [facility] FOR SKILLED STAY. FAXED DC ORDERS/SUMMARY TO FACILITY RECEIVED CONFIRMATION AND SPOKE WITH SLOANE IN ADM SHE ARRANGED TRANSPORT BY [facility] FOR 7421-2208 TODAY. LEFT MSG WITH PT'S SON (CHEVY) WITH DC AND TIME OF TRANSPORT. UNIT NOTIFIED AND CHART COPY PER US. RN TO CALL REPORT TO [phone].
[2019-04-19 10:55] VITALS: BP 106/58; BP 113/61
--- NOTE | 2019-04-19 13:26 | NUR ---
spoke with dtr Velvet to alert of dc and timeframe she is in agreement with plan.
--- NOTE | 2019-04-19 16:49 | NUR ---
ASSUMED CARE OF PT AT SHIFT CHANGE. ASSESSMENTS CHARTED. MEDS GIVEN PER JUL. VSS. A&OX4. NO ACTIVE BLEEDING. COMPLETED TRANSFUSION ORDER OF 1 UNIT PRBC WITH NO SIGNS OF REACTION. C/O MOUTH PAIN TREATED WITH SWISH AND SWALLOW MAGIC MOUTHWASH. COMPLETE DISCHARGE ORDERS. PT TRANPORTED TO REHAB FACILITY BY FELIPE SOUZA.
--- NOTE | 2019-04-20 11:02 | HC ---
[facility] [place] [address] CONSULTATION Name: RELLVICENTENADINE Room #: 214-P [facility] IN M.R.#: [id number] Admission: 04/04/19 Attend Phys: Deshawn Whitlock MD Discharge: 04/19/19 Date of : 35 Report #: [id number] THIS REPORT FOR: //name// CC: Deshawn Whitlock DATE OF SERVICE: 04/11/2019 HISTORY OF PRESENT ILLNESS: The patient is an 83-year-old white female who has had a history of recurrent GI bleed, admitted on 04/04/2019 with a positive nuclear med bleeding scan, noted to have a tight stricture of the sigmoid colon. She had an acute diverticulitis noted on EGD on 04/06/2019. Continue to followup revealed an active bleed in right colon. She has now undergone embolization in Interventional Radiology of the active bleed on 04/11/2019. Her course has been complicated by non-SVT. She has had symptomatic anemia with several transfusions. She has had bacteremia with Staphylococcus aureus, likely from a GI source. She has been treated for urinary tract infection, Escherichia coli. She has had edema due to all the transfusions. She has had electrolyte abnormalities. She has significant generalized weakness and debilitation along with her medical complexity. She has a prior CVA with left-sided weakness. We are seeing her in rehabilitation medicine consultation. PAST MEDICAL HISTORY: Includes a prior history of GI bleeding, recurrent. 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 She also has a myelodysplastic syndrome. She had the prior CVA with left-sided weakness. History of hypothyroidism. ALLERGIES: Include DOXYCYCLINE, LEVOFLOXACIN, TETRACYCLINE, AND ATORVASTATIN. MEDICATIONS: Please see the full medication listing. SOCIAL HISTORY: Lives in a house with her son and her son's family, 3 steps in. Premorbid cane ambulator in the community. HABITS: No history of tobacco or alcohol abuse. FAMILY HISTORY: Noncontributory. PAST SURGICAL HISTORY: Partial thyroidectomy and bone marrow biopsy. REVIEW OF SYSTEMS: No current complaints of chest pain, shortness of breath, abdominal discomfort. No current fever. Notes generalized weakness, decreased strength. No numbness or tingling. PHYSICAL EXAMINATION: GENERAL: An 83-year-old white female in no obvious distress. VITAL SIGNS: Last recorded temperature 97, pulse 105, respirations 18, blood pressure 101/46. The patient is alert. [address] [address] CONSULTATION Name: NADINE ARROYO Room #: 214-P DIS IN [facility].#: [id number] Admission: 04/04/19 Attend Phys: Deshawn Whitlock MD Discharge: 04/19/19 Date of : 35 Report #: [id number] HEENT: Appeared to be benign. NEUROLOGIC: Cranial nerves grossly intact. She is currently undergoing an echocardiogram, which was put on hold while I examined her. EXTREMITIES: Functional range of motion of both upper extremities. She does have some distal edema, 1+ lower extremities, functional range of motion, distal edema 1+. Functionally, she is max assist [id number]. Gait was mod assist 30 feet with a front-wheeled walker. ABDOMEN: Soft. ASSESSMENT: An 83-year-old white female with the following problems: 1. Medical complexity with generalized debilitation. 2. Recurrent gastrointestinal bleeding with positive nuclear med bleeding scan, active bleed right colon, now status post embolization in Interventional Radiology on 04/11/2019. 3. Non-supraventricular tachycardia. 4. Symptomatic anemia, transfused packed red blood cells several times. 5. Extremity edema due to all the transfusions. 6. Diverticulitis, has been on IV antibiotics. 7. Escherichia coli urinary tract infection, on IV antibiotics. 8. Bacteremia with Staphylococcus aureus. 9. Electrolyte abnormalities. 10. Prior cerebrovascular accident with left-sided weakness. PLAN: The patient is a candidate for an acute in-hospital inpatient rehabilitation stay. Agree that an acute in-hospital inpatient rehabilitation stay would be helpful as far as maximizing the patient's functional independence, strength, and endurance with mobility and ADLs while at the same time monitoring her overall medical status and issues with the recurrent GI bleed. We could have the current multiple sap business objects consultant physicians continue to follow while she is on the acute rehab kahn. Insurance precertification issues to be obtained. The patient appears to understand the appropriateness of this next plan of care. Thank you for asking us to assist in this patient's care. <ELECTRONICALLY SIGNED> By: Gibran Orlando MD 04/20/19 1102 1416 0140 Gibran Orlando MD /nt
== END 2019-04-19 16:42 | DRG 853 ==
LOC: ER 22:22 → EROBS 04-04 00:48 → 2N 04-04 00:48 → ICU 04-12 09:59 → 2N 04-14 17:10
PROVIDERS: Emergency Medicine; Internal Medicine; Internal Medicine Gastroenterology; Nuclear Medicine Nuclear Cardiology; Nurse Practitioner; Radiology Diagnostic Radiology; ADMIT Family Medicine
PROC: 30233R1 Transfusion of Nonautologous Platelets into Peripheral Vein, Percutaneous Approach (ICD-10-PCS; 2019-04-04)
PROC: 0DJ08ZZ Inspection of Upper Intestinal Tract, Via Natural or Artificial Opening Endoscopic (ICD-10-PCS; 2019-04-06)
PROC: 0DJD8ZZ Inspection of Lower Intestinal Tract, Via Natural or Artificial Opening Endoscopic (ICD-10-PCS; 2019-04-06)
PROC: 30233N1 Transfusion of Nonautologous Red Blood Cells into Peripheral Vein, Percutaneous Approach (ICD-10-PCS; 2019-04-06)
PROC: B4101ZZ Fluoroscopy of Abdominal Aorta using Low Osmolar Contrast (ICD-10-PCS; principal; 2019-04-10)
PROC: B41B1ZZ Fluoroscopy of Other Intra-Abdominal Arteries using Low Osmolar Contrast (ICD-10-PCS; principal; 2019-04-10)
PROC: B4151ZZ Fluoroscopy of Inferior Mesenteric Artery using Low Osmolar Contrast (ICD-10-PCS; principal; 2019-04-10)
PROC: 04L83DZ Occlusion of Middle Colic Artery with Intraluminal Device, Percutaneous Approach (ICD-10-PCS; principal; 2019-04-10)
PROC: B41F1ZZ Fluoroscopy of Right Lower Extremity Arteries using Low Osmolar Contrast (ICD-10-PCS; principal; 2019-04-10)
PROC: B4141ZZ Fluoroscopy of Superior Mesenteric Artery using Low Osmolar Contrast (ICD-10-PCS; principal; 2019-04-10)
PROC: B4141ZZ Fluoroscopy of Superior Mesenteric Artery using Low Osmolar Contrast (ICD-10-PCS; 2019-04-11)
PROC: 04L63DZ Occlusion of Right Colic Artery with Intraluminal Device, Percutaneous Approach (ICD-10-PCS; 2019-04-11)
PROC: B4151ZZ Fluoroscopy of Inferior Mesenteric Artery using Low Osmolar Contrast (ICD-10-PCS; 2019-04-11)
PROC: B4181ZZ Fluoroscopy of Bilateral Renal Arteries using Low Osmolar Contrast (ICD-10-PCS; 2019-04-11)
DX: A41.9 Sepsis, unspecified organism (principal); E43 Unspecified severe protein-calorie malnutrition; K55.21 Angiodysplasia of colon with hemorrhage; K57.93 Diverticulitis of intestine, part unspecified, without perforation or abscess with bleeding; I69.354 Hemiplegia and hemiparesis following cerebral infarction affecting left non-dominant side; D61.818 Other pancytopenia; K56.699 Other intestinal obstruction unspecified as to partial versus complete obstruction; I47.1 Supraventricular tachycardia; N39.0 Urinary tract infection, site not specified; D62 Acute posthemorrhagic anemia; B37.0 Candidal stomatitis; E89.0 Postprocedural hypothyroidism; I35.0 Nonrheumatic aortic (valve) stenosis; E83.51 Hypocalcemia; D46.9 Myelodysplastic syndrome, unspecified; R53.81 Other malaise; R60.0 Localized edema; B96.20 Unspecified Escherichia coli [E. coli] as the cause of diseases classified elsewhere; D69.6 Thrombocytopenia, unspecified; K64.8 Other hemorrhoids; K57.90 Diverticulosis of intestine, part unspecified, without perforation or abscess without bleeding; E87.6 Hypokalemia; R13.10 Dysphagia, unspecified; I11.0 Hypertensive heart disease with heart failure; I50.9 Heart failure, unspecified; B37.9 Candidiasis, unspecified; Z68.33 Body mass index [BMI] 33.0-33.9, adult; Z88.1 Allergy status to other antibiotic agents; Z88.8 Allergy status to other drugs, medicaments and biological substances; Z79.899 Other long term (current) drug therapy
CPT/HCPCS: 10078; 10081; 10203; 70005; 85076

== ENCOUNTER 2019-05-11 09:37 | Inpatient (IN) | payer OTHER ==
[~2019-05-11] VITALS: Ht 154.9 cm; Wt 68.0 kg
[~2019-05-11 09:37] MED LIST changes: +AUGMENTIN400 MG/53 PO; +LEVO-T50 MCG PO; +VALTREX 500 MG500 MG PO; +VOLTAREN GEL 1100 G1 TOP
[2019-05-11 09:38] VITALS: BP 102/55
[2019-05-11 10:05] LABS: RBC 2.22 mil/uL (4.20-5.00)
[2019-05-11 10:07] LABS: MCH 27.8 pg (26.0-34.0); MCHC 31.8 g/dL (28.0-37.0); MCV 87.4 fL (80.0-100.0); PLATELET COUNT 46 thou/uL (150-400); RDW 19.1 % (10.5-14.5)
[2019-05-11 10:09] LABS: WBC 1.7 thou/uL (4.0-11.0)
[2019-05-11 10:10] LABS: HEMATOCRIT 19.4 % (37.0-47.0); HEMOGLOBIN 6.2 gm/dL (12.0-15.0)
[2019-05-11 10:13] LABS: POTASSIUM 3.8 mmol/L (3.5-5.1)
[2019-05-11 10:42] LABS: ABSOLUTE NEUTROPHILS 1.1 thou/uL (1.4-8.2); ANISOCYTOSIS SLIGHT; MICROCYTES 2+; PLATELET ESTIMATE DECREASED
--- NOTE | 2019-05-11 11:19 | NUR ---
SON (CHEVY) CALLED AND UPDATED ON POC
[2019-05-11 11:35] VITALS: BP 102/61; BP 104/58; BP 107/59
[2019-05-11 12:37] VITALS: BP 102/61
[2019-05-11 13:51] VITALS: BP 107/58
[2019-05-11 16:15] LABS: HEMATOCRIT 20.3 % (37.0-47.0); HEMOGLOBIN 6.7 gm/dL (12.0-15.0)
--- NOTE | 2019-05-11 17:13 | EKG ---
[address] [address] [facility] [place] [address] ELECTROCARDIOGRAM REPORT Name: NADINE ARROYO Room #: 435-P ADM IN M.R.#: [id number] Admission: 05/11/19 Attend Phys: Deshawn Whitlock MD Discharge: Date of : 35 Report #: [id number] THIS REPORT FOR: //name// [facility] ED Test Date: 2019-05-11 Test Time: 10:21:06 Pat Name: NADINE ARROYO Department: Room: [facility] Gender: F Computer Help Desk Specialist: : 1935 Requested By: Isaías Laguna Order Number: [id number] MD: Arjun Novak Measurements Intervals [place] Rate: 118 P: 3 [place]: 138 QRS: 40 QRSD: 69 T: 114 QT: 324 QTc: 455 Interpretive Statements Sinus tachycardia Anteroseptal infarct, old Borderline repolarization abnormality Compared to ECG 04/17/2019 16:08:06 T-wave abnormality no longer present Electronically Signed On 05-11-2019 17:13:02 FORCER MAKER by Arjun Novak [email or web address] <ELECTRONICALLY SIGNED> By: Arjun Novak MD, [facility] 05/11/19 1713 1021 102 Arjun Novak MD, [facility] /EPI
[2019-05-11 18:57] VITALS: BP 124/71
[2019-05-11 21:01] LABS: HEMATOCRIT 20.7 % (37.0-47.0); HEMOGLOBIN 6.8 gm/dL (12.0-15.0)
--- NOTE | 2019-05-11 23:17 | NUR ---
ASSUMED CARE OF PT @1900 PT TRANSPORTED VIA WHEELCHAIR TO RADIOLOGY FOR NUCLEAR MED SCAN LEFT THE UNIT @2049 AND ARRIVED @2300 PT TO GET 1 UNIT OF BLOOD TRANSFUSION DUE TO LOW HGB WILL CONT TO MONITOR
[2019-05-12 04:05] VITALS: BP 112/73
[2019-05-12 05:39] LABS: MCH 28.6 pg (26.0-34.0); RBC 2.05 mil/uL (4.20-5.00)
[2019-05-12 05:41] LABS: MCV 86.5 fL (80.0-100.0); RDW 17.9 % (10.5-14.5)
[2019-05-12 06:09] LABS: WBC 1.7 thou/uL (4.0-11.0)
[2019-05-12 06:10] LABS: HEMATOCRIT 17.7 % (37.0-47.0); HEMOGLOBIN 5.9 gm/dL (12.0-15.0)
[2019-05-12 07:17] VITALS: BP 118/70
--- NOTE | 2019-05-12 07:48 | NUR ---
PT RESTING IN BED ALERT XS 4. PT TO GET 1 UNIT PRBC'S THIS AM. PT STATES NO PAIN. HAS NS INFUSING AT 100/ HR ORDERED. ROOM AIR. O2 AT 2L/NC. WILL ASK DR KAPOOR ABOUT DIET AT THIS TIME SHE IS CLEAR LIQUIDS.
--- NOTE | 2019-05-12 09:05 | NUR ---
PT RESTING IN BED STATES NO PAIN NO N&V. DR KAPOOR HERE TO SEE PATIENT. STATES WILL GET 1 UNIT BLOOD AND THEN SHE WILL HAVE PROCEDURE. REMAINS ON CLEAR LIQUIDS.
--- NOTE | 2019-05-12 10:24 | NUR ---
INITIAL ASSESSMENT: Pt evaluated for d/c planning needs. Reviewed chart and spoke with nurse and pt. Pt is alert and oriented. Pt is known to CM from previous admissions. Pt lives in house with son and family. Pt was hospitalized at [facility] in April 2019 and went to [facility] on d/c. Pt returned home with son on May 05. Pt said she had a bad experience at SNF and does not want to return there. Pt has been to [facility] in the past, and would be willing to go there if SNF needed. Pt has cane and walker at home. Pt said she has had home health in the past, but does not remember name of company. Pt is hopeful she will be able to return to her son's house on d/c from hospital. Will remain available to assist as needed.
[2019-05-12 14:47] VITALS: BP 114/61; BP 116/67; BP 122/76; BP 123/73; BP 137/69
[2019-05-12 19:30] VITALS: BP 132/72
[2019-05-12 20:10] LABS: HEMATOCRIT 21.7 % (37.0-47.0); HEMOGLOBIN 7.1 gm/dL (12.0-15.0)
[2019-05-12 20:21] LABS: CALCIUM 8.4 mg/dL (8.5-10.1); CREATININE 0.9 mg/dL (0.6-1.0); POTASSIUM 3.4 mmol/L (3.5-5.1)
[2019-05-12 20:24] LABS: INR 1.1
--- NOTE | 2019-05-13 01:18 | NUR ---
PT ASSESSED AT START OF SHIFT A&O4 GOT 1 UNIT OF BLOOD PER REPORT FROM DAY NURSE. IV INTACT AND FLUIDS INFUSING. DR CRUZ AND DR PRUETT MET WITH PT THIS EVENING AT START OF SHIFT. NPO FOR POSIBLE SX OR PROCEDURE TOMORROW. PT HAD 1 STOOL SO FAR THIS SHIFT DARK AND RED AND COLOR. UP WITH WALKER TO THE BEDSIDE COMMODE. HAD TROUBLE FALLING ASLEEP. ANDREA GIVENX1 @2145 WITH LITTLE SIP OF WATER. FALL PREC IN PLACE AND WILL CONT WITH POC TILL EOS
[2019-05-13 03:38] VITALS: BP 147/72
[2019-05-13 08:58] VITALS: BP 135/64
[2019-05-13 13:04] LABS: HEMATOCRIT 22.9 % (37.0-47.0); HEMOGLOBIN 7.4 gm/dL (12.0-15.0)
--- NOTE | 2019-05-13 14:30 | EKG ---
[address] [address] ELECTROCARDIOGRAM REPORT Name: NADINE ARROYO Room #: 435-P ADM IN M.R.#: [id number] Admission: 05/11/19 Attend Phys: Deshawn Whitlock MD Discharge: Date of : 35 Report #: [id number] THIS REPORT FOR: //name// [facility] Test Date: 2019-05-13 Test Time: 10:34:10 Pat Name: NADINE ARROYO Department: Room: 435 Gender: F Nurse Assessor: David PRICE : 1935 Requested By: Arjun Novka Order Number: [id number] MD: Brando Gipson Measurements Intervals [place] Rate: 124 P: 12 [place]: 133 QRS: 16 QRSD: 73 T: 161 QT: 325 QTc: 467 Interpretive Statements Sinus tachycardia Atrial premature complex Anteroseptal infarct, old Borderline repolarization abnormality Compared to ECG 05/11/2019 10:21:06 Atrial premature complex(es) now present Myocardial infarct finding still present Electronically Signed On 05-13-2019 14:30:20 PARTS INTERPRETER by Brando Gipson [email or web address] <ELECTRONICALLY SIGNED> By: Brando Gipson MD 05/13/19 1430 1034 1034 Brando Gipson MD /EPI
[2019-05-13 15:30] VITALS: BP 105/61; BP 99/62
--- NOTE | 2019-05-13 16:38 | NUR ---
FAXED TODAY'S PT/OT NOTES TO [facility] RECEIVED CONFIRMATION AND LEFT MSG WITH NICOLE IN ADM. DP TO FOLLOW.
[2019-05-13 16:52] VITALS: BP 113/75; BP 118/68; BP 128/66
[2019-05-13 19:15] VITALS: BP 112/70
--- NOTE | 2019-05-13 19:19 | NUR ---
Assumed care of pt at 0700. Pt a&ox4. Cardiology consulted for sx clearance. Dr Sykes visited pt in room and had phone call with son about possible plan. 1 unit of platelets infused. Unit 1 of PRBC started. Patient will receive 1 more unit on nightshift after current unit is infused. Andree RN aware. Pt c/o anxiety. Heart rate between 120-130. Provider aware. New orders noted. Pt resumed normal diet per GI. 3 bloody stools during shift. Call light within reach. Report given to andree GAN.
[2019-05-13 23:40] VITALS: BP 112/58; BP 114/65; BP 120/79; BP 126/83
[2019-05-14 03:55] VITALS: BP 126/66
--- NOTE | 2019-05-14 04:41 | NUR ---
ASSESSED AT START OF SHIFT BLOOD TRANSFUSION STILL INFUSING. COMPLETED AND CHARTED SEE INTERVENTION NO REACTION. CALLED LAB TO GET 2ND UNIT OF BLOOD STATED NO ORDERS FOR PRBC. ORDERS PLACED STATED TO GET SECOND UNIT PER BLOOD INFUSION STARTED @2350 AND COMPLETED NO COMPLICATIONS. PT UP WITH ASSISTX1 TO BSC. FALL PREC IN PLACE AND WILL CONT TO MONITOR
[2019-05-14 05:06] LABS: HEMATOCRIT 27.1 % (37.0-47.0); HEMOGLOBIN 9.1 gm/dL (12.0-15.0); MCH 27.9 pg (26.0-34.0); MCHC 33.5 g/dL (28.0-37.0); MCV 83.3 fL (80.0-100.0); RBC 3.25 mil/uL (4.20-5.00); RDW 21.9 % (10.5-14.5); WBC 2.4 thou/uL (4.0-11.0)
[2019-05-14 05:17] LABS: ALBUMIN 2.4 g/dL (3.4-5.0); CALCIUM 8.3 mg/dL (8.5-10.1); CREATININE 0.8 mg/dL (0.6-1.0); MAGNESIUM 1.8 mg/dL (1.8-2.4); PHOSPHORUS 2.8 mg/dL (2.5-4.9); POTASSIUM 3.3 mmol/L (3.5-5.1)
[2019-05-14 08:00] VITALS: BP 122/80
[2019-05-14 16:56] VITALS: BP 93/53
[2019-05-14 19:30] VITALS: BP 111/57
--- NOTE | 2019-05-15 01:16 | NUR ---
PT AMBULATING TO BATHROOM WITH WALKER AND STANDBY ASSIST AND IS TOLERATING FAIR. SOB AND WHEEZY WITH EXERTION. DENIES PAIN. RESTING COMFORTABLY. NO NEEDS VOICED. CALL LIGHT WITHIN REACH. WILL CONTINUE TO PROVIDE FREQUENT OBSERVATION.
[2019-05-15 05:03] LABS: CALCIUM 8.3 mg/dL (8.5-10.1); CREATININE 0.9 mg/dL (0.6-1.0); POTASSIUM 3.1 mmol/L (3.5-5.1)
--- NOTE | 2019-05-15 09:19 | NUR ---
PT UP IN BEDSIDE CHAIR TOOK AM MEDS AND ATE BREAKFAST. DR KAPOOR HERE TO SEE PATIENT. PT TO HAVE SURGERY TUES WITH DR CRUZ. PT W/O PAIN OR RESP DISTRESS AT THIS TIME.
[2019-05-15 09:48] VITALS: BP 104/43
--- NOTE | 2019-05-15 11:23 | EKG ---
[address] [address] ELECTROCARDIOGRAM REPORT Name: NADINE ARROYO Room #: 435-P ADM IN M.R.#: [id number] Admission: 05/11/19 Attend Phys: Deshawn Whitlock MD Discharge: Date of : 35 Report #: [id number] THIS REPORT FOR: //name// [facility] Test Date: 2019-05-14 Test Time: 10:18:09 Pat Name: NADINE ARROYO Department: Room: 435 Gender: F Senior Materials Planner: JOAQUIN : 1935 Requested By: Maxine Su Order Number: [id number] MD: Brando Gipson Measurements Intervals [place] Rate: 127 P: 7 [place]: 138 QRS: 4 QRSD: 68 T: 152 QT: 280 QTc: 408 Interpretive Statements Sinus tachycardia Atrial premature complexes Repolarization abnormality, prob rate related Compared to ECG 05/13/2019 10:34:10 Myocardial infarct finding no longer present Electronically Signed On 05-15-2019 11:23:09 PLASTER LATHER by Brando Gipson [email or web address] <ELECTRONICALLY SIGNED> By: Brando Gipson MD 05/15/19 1123 1018 1018 Brando Gipson MD /EPI
[2019-05-15 16:46] VITALS: BP 113/71
[2019-05-15 19:15] VITALS: BP 129/89
[2019-05-15 19:30] VITALS: BP 100/63
--- NOTE | 2019-05-16 01:50 | NUR ---
PT AMBULATING TO BATHROOM WITH STANDBY ASSIST AND IS TOLERATING FAIR. DENIES PAIN. PLAN FOR PLACEMENT OF COLOSTOMY 05/17. RESTING COMFORTABLY. NO NEEDS VOICED. CALL LIGHT WITHIN REACH. WILL CONTINUE TO PROVIDE FREQUENT OBSERVATION.
[2019-05-16 02:45] VITALS: BP 103/68
[2019-05-16 05:51] LABS: HEMATOCRIT 27.6 % (37.0-47.0); HEMOGLOBIN 9.1 gm/dL (12.0-15.0); MCHC 32.9 g/dL (28.0-37.0); MCV 85.1 fL (80.0-100.0); RBC 3.24 mil/uL (4.20-5.00); RDW 22.2 % (10.5-14.5); WBC 2.5 thou/uL (4.0-11.0)
[2019-05-16 06:08] LABS: ALBUMIN 2.4 g/dL (3.4-5.0); CALCIUM 8.6 mg/dL (8.5-10.1); CREATININE 0.9 mg/dL (0.6-1.0); PHOSPHORUS 3.2 mg/dL (2.5-4.9); POTASSIUM 3.3 mmol/L (3.5-5.1)
[2019-05-16 07:55] VITALS: BP 105/65
--- NOTE | 2019-05-16 08:13 | NUR ---
PATIENT RESTING IN BED. VS TAKEN. DR KAPOOR HERE TO SEE PATIENT. PT W/O PAIN OR RESP DISTRESS.
[2019-05-16 08:42] LABS: CALCIUM 8.6 mg/dL (8.5-10.1); CREATININE 0.9 mg/dL (0.6-1.0); POTASSIUM 3.3 mmol/L (3.5-5.1)
[2019-05-16 11:55] LABS: URINE BILIRUBIN NEGATIVE (Negative); URINE BLOOD NEGATIVE (Negative); URINE CLARITY CLEAR; URINE COLOR YELLOW; URINE GLUCOSE-RANDOM* NEGATIVE (Negative); URINE KETONES NEGATIVE (Negative); URINE NITRITE-REFLEX NEGATIVE (Negative); URINE PROTEIN (DIPSTICK) NEGATIVE (Negative); URINE UROBILINOGEN 0.2 E.U./dl (0.2-1.0)
[2019-05-16 11:56] LABS: URINE LEUKOCYTES-REFLEX 1+ (Negative)
[2019-05-16 12:10] LABS: BACTERIA-REFLEX 1-9 Few /HPF (None Seen); CASTS None Seen /LPF (None Seen); CRYSTALS None Seen /LPF (None Seen); SQUAMOUS None Seen /LPF (0-3); URINE RBC None Seen /HPF (0-2); URINE WBC-REFLEX 6-15 Few /HPF (0-5)
--- NOTE | 2019-05-16 14:19 | NUR ---
Consult rec'd this morning to initiate acute inpt transfer to [facility] for TAVR procedure per CV. Referral called to their transfer nurse Jessica. Radiology notified to upload to the cloud and facesheet, h/p, labs, consults, progress notes and vitals faxed to the transfer nurse. Dr. Whitlock notified to contact Jessica at [phone] in the transfer center. Radha from also given the number. Care team updated. Transfer form and [facility] forms are on the chart copy and ready once the pt has been accepted and assigned a bed. Pt and dtr are aware and agreeable. Awaiting response from [facility].
--- NOTE | 2019-05-16 15:02 | HC ---
[facility] [place] [address] CONSULTATION Name: NADINE ARROYO Room #: 435-P ADM IN M.R.#: [id number] Admission: 05/11/19 Attend Phys: Deshawn Whitlock MD Discharge: Date of : 35 Report #: [id number] THIS REPORT FOR: //name// CC: Deshawn Bro DATE OF SERVICE: 05/12/2019 REASON FOR CONSULTATION: GI bleed. ASSESSMENT: 1. Melena. 2. Acute blood loss anemia. 3. History of recurrent and persistent gastrointestinal bleeds. 4. Status post angioembolization of right colon in 04/2019. 5. Myelodysplastic syndrome. 6. Thrombocytopenia. 7. Jejunal polyp, status post polypectomy on 03/18/2019. 8. 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 9. Suspected cecal AVMs. 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 11. Severe aortic stenosis. 12. Urinary tract infection/bacteremia. 13. Elevated troponin. RECOMMENDATIONS: Thank you for the consultation. I will follow along. 1. Discussed the case with Gastroenterology. 2. The patient is currently being resuscitated. She continues to have melena. She is currently stable. 3. Considering taking the patient for surgery, difficult to guarantee that a resection will fix her recurrent GI bleeds given her many sources. 4. Considering right hemicolectomy; however, the right colon has not recently been evaluated endoscopically due to a sigmoid stricture. 5. If going to the operating room, we will consider a combined hemicolectomy and possibly sigmoidectomy due to the sigmoid stricture as a successful endoscopy has been impossible due to the stricture and has complicated the care for her several gastrointestinal bleeds. 6. Given findings of angioectasia on recent endoscopy, I would like to consider treatment of her aortic stenosis as well. Consider Cardiology consult for their evaluation of possibility of a TAVR. This may be too high risk given that they would have to heparinize the patient. However, if we do get control of her recurrent GI bleeds, it might be worthwhile to consider treatment of her aortic stenosis to prevent further bleeding in the future. 7. If teams are in agreement with the surgery and would prefer surgery, we will need improvement in her hemoglobin and platelets. [address] [address] CONSULTATION Name: NADINE ARROYO Room #: 435-P [facility] IN M.R.#: [id number] Admission: 05/11/19 Attend Phys: Deshawn Whitlock MD Discharge: Date of : 35 Report #: [id number] HISTORY OF PRESENT ILLNESS: The patient is a very pleasant 83-year-old female who I know well from a recent hospitalization with a very difficult history of GI bleeds since 2016 due to small bowel and cecal pathology. The patient has many medical comorbidities including hematologic and cardiac issues. The patient is returning to the hospital with a 5-7 day history of melena. She has been admitted recently in April and had Interventional Radiology embolization of her right colon for bleeding at that time. She also recently had a push endoscopy at [facility] on 03/08/2019 which identified several small bowel/jejunal abnormalities such as angioectasia in the proximal jejunum and a 3.5 cm pedunculated polyp in the mid jejunum. The patient received a blood transfusion yesterday and 1 today. She is thrombocytopenic due to myelodysplastic syndrome. PAST MEDICAL HISTORY: 1. History of gastrointestinal bleed. 2. Myelodysplastic syndrome. 3. History of cerebrovascular accident with left-sided weakness. 4. Hypothyroidism. 5. Severe aortic stenosis. 6. History of nonsustained ventricular tachycardia. PAST SURGICAL HISTORY: 1. History of colonic perforation and laparoscopic repair. 2. Colonoscopies. 3. EGDs. 4. Push endoscopy. SOCIAL HISTORY: Denies alcohol, tobacco or recreational drug use. FAMILY HISTORY: Denies coagulopathy or malignancy. REVIEW OF SYSTEMS: CONSTITUTIONAL: No fever. No chills. HEENT: Denies blurring of vision, double vision, headaches, hearing loss, sinus drainage or sore throat. Denies blurring of vision, double vision, headaches, hearing loss, sinus drainage or sore throat. CARDIOVASCULAR: See above and below. RESPIRATORY: See above and below. GASTROINTESTINAL: See above and below. GENITOURINARY: Denies dysuria or hematuria or kidney stones. No urinary frequency, urgency or incontinence. Denies dysuria or hematuria or kidney stones. No urinary frequency, urgency or incontinence. MUSCULOSKELETAL: No joint pain. No muscle pain. [address] [address] CONSULTATION Name: NADINE ARROYO Room #: 435-P [facility] IN M.R.#: [id number] Admission: 05/11/19 Attend Phys: Deshawn Whitlokc MD Discharge: Date of : 35 Report #: [id number] NEUROLOGICAL: Denies tremor, stroke or seizure. Denies tremor, stroke or seizure. HEMATOLOGIC / LYMPHATICS: See above and below. SKIN: No rash or ulceration. ENDOCRINE: No heat or cold intolerance PSYCHIATRIC: Denies depression, anxiety, or schizophrenia. PHYSICAL EXAMINATION: VITAL SIGNS: Temperature 36.6, pulse 126, respiratory rate 17, blood pressure 118/70, pulse ox is 93%. GENERAL: No apparent distress, alert and oriented x3. HEENT: PERRLA, EOMI, MMM, NCAT NECK: Supple. No LAD CARDIOVASCULAR: Regular rhythm and rate. Hemodynamically stable. Normal capillary refill. Regular rhythm and rate. Hemodynamically stable. Normal capillary refill. PULMONARY: Nonlabored. Clear to auscultation bilaterally ABDOMEN: Soft, nontender to palpation, no guarding, no rigidity, no rebound tenderness, no hernias. EXTREMITIES: Calves soft, nontender, no edema. SKIN: No rashes or bruises. PSYCHIATRIC: Normal mood and affect Normal mood and affect NEUROLOGICAL: Grossly intact. CN II-XII grossly intact. MUSCULOSKELETAL: 5/5 strength in upper extremities and lower extremities bilaterally LYMPHATICS: No cervical, inguinal, or supraclavicular lymphadenopathy. LABORATORY DATA: White blood count 1.7, hemoglobin 5.9, hematocrit 17.7, platelets 38. Sodium 145, potassium 3.4, creatinine 0.9, troponin 0.38. BNP 2948. IMAGING: Tagged red blood cell scan. IMPRESSION: Focal area of increasing radiotracer activity within the right upper quadrant near the hepatic flexure consistent with positive scintigraphic evidence of acute gastrointestinal hemorrhage, likely within the region of the hepatic flexure of the colon. Findings are communicated to the floor nurse about the nuclear mesenteric node. <ELECTRONICALLY SIGNED> By: Luis Sykes MD 05/16/19 1502 2037 0323 Lusi Sykes MD /nt
[2019-05-16 16:15] VITALS: BP 101/64
[2019-05-16] MEDS ORDERED: DEXAMETHASO0.1 MG/M1 IV PUSH (16:51)
[2019-05-16 19:20] VITALS: BP 119/64
--- NOTE | 2019-05-16 19:51 | NUR ---
REPORT GIVEN TO IZA GAN AT [facility] PATIENT TO TRANSFER [facility]. CALLED [phone]
== END 2019-05-16 20:45 | disposition short-term general hospital (02) | DRG 377 ==
LOC: ER 09:37 → EROBS 11:15 → 4S 11:15
PROVIDERS: Emergency Medicine; Internal Medicine; Nurse Practitioner; Nurse Practitioner Adult Health; Radiology Diagnostic Radiology; Surgery; ADMIT Family Medicine
PROC: 30233N1 Transfusion of Nonautologous Red Blood Cells into Peripheral Vein, Percutaneous Approach (ICD-10-PCS; principal; 2019-05-13)
PROC: 30233R1 Transfusion of Nonautologous Platelets into Peripheral Vein, Percutaneous Approach (ICD-10-PCS; principal; 2019-05-13)
DX: K92.2 Gastrointestinal hemorrhage, unspecified (principal); E43 Unspecified severe protein-calorie malnutrition; D62 Acute posthemorrhagic anemia; I69.354 Hemiplegia and hemiparesis following cerebral infarction affecting left non-dominant side; N39.0 Urinary tract infection, site not specified; K56.699 Other intestinal obstruction unspecified as to partial versus complete obstruction; I47.2 Ventricular tachycardia; D61.818 Other pancytopenia; D46.9 Myelodysplastic syndrome, unspecified; I35.0 Nonrheumatic aortic (valve) stenosis; R58 Hemorrhage, not elsewhere classified; E89.0 Postprocedural hypothyroidism; D69.6 Thrombocytopenia, unspecified; R79.89 Other specified abnormal findings of blood chemistry; E87.6 Hypokalemia; Z79.899 Other long term (current) drug therapy; Z88.1 Allergy status to other antibiotic agents; Z88.8 Allergy status to other drugs, medicaments and biological substances
CPT/HCPCS: 10102